=== PATIENT | male | born 1955 | race Caucasian/White ===

== ENCOUNTER 2017-07-29 14:13 | Emergency (ER) | payer BC ==
[2017-07-29] MEDS ORDERED: LORazepam TAB(*) 1 MG PO ONE (16:51)
[2017-07-29] MEDS ORDERED: HYDROmorphone INJ* 1 MG/ML CARPUJECT SYRINGE IV ONE (16:52)
[2017-07-29 17:26] LABS: Hematocrit 45 % (42-52); Hemoglobin 15.2 g/dl (14.0-18.0); Mean Corpuscular HGB Conc 34 g/dl (31-36); Mean Corpuscular Hemoglobin 33 pg (27-31); Mean Corpuscular Volume 97 fL (80-94); Mean Platelet Volume 7 um3 (7.4-10.4); Red Blood Count 4.59 10^6/ul (4.0-5.4); Red Cell Distribution Width 13 % (10.5-15); White Blood Count 9.7 10^3/ul (3.5-10.8)
[2017-07-29 17:44] LABS: Albumin 4.2 g/dL (3.2-5.2); BUN/Creatinine Ratio 14.4 (8-20); C Reactive Protein 1.85 mg/L (< 5.00); Calcium 9.3 mg/dL (8.6-10.3); EGFR African American 101.5 (>60); EGFR Non-African American 78.9 (>60); Globulin 2.3 g/dL (2-4); Potassium 4.4 mmol/L (3.5-5.0); Total Bilirubin 0.4 mg/dL (0.2-1.0); Total Protein 6.5 g/dL (6.4-8.9)
[2017-07-29 18:20] LABS: Erythrocyte Sed Rate 3 mm/Hr (0-20)
[2017-07-29 19:29] VITALS: BP 135/94
--- NOTE | 2017-07-30 12:53 | ED ---
Edvin Berry Angela, scribed for Luis Alberto Gibbs MD on 07/29/17 at 1619 . Headache - HPI Summary HPI Summary: This pt is a 61 y/o male [facility] 1 month, worsening since today. Pt reports that he has chronic degenerative disc pain and has intermittent headaches. Today pt states he feels like his head is "exploiting" and is described as pressure in the occipital region. Pt notes that he has been seeing his night shift (Dr. Gonzalez at [facility] in [place]) for ihs chronic degenerative disc disease. He has been referred to a neurologist but has not seen them yet. Pt is currently on cyclobenzaprine (1 at night), Lyrica (75 mg TID), sulfasalazine (6/day), levothyroxine, Enbrel (50 mg), Sumatriptan (for migraines ), folic acid, vitamin D. Allergies: Penicillins and Mobic. - History Of Current Complaint Chief Complaint: EDNeurologicalDeficit Stated Complaint: NEUROLOGICAL ISSUES Time Seen by Provider: 07/29/17 15:42 Hx Obtained From: Patient Onset/Duration: Started weeks ago, Still Present, Worse Since - today Currently Pain Is: Severe Timing: Intermittent, Lasting:, Days Character: Pressure Location of Headache: Occipital Associated Signs And Symptoms: Neck Pain - Allergies/Home Medications Allergies/Adverse Reactions: Allergies Allergy/AdvReac Type Severity Reaction Status Date / Time Meloxicam [From Mobic] Allergy Severe Nausea And Verified 07/29/17 14:24 Vomiting Penicillins Allergy Intermediate Hives Verified 07/29/17 14:24 Home Medications: Home Medications Candesartan (NF) [Atacand (NF)] 8 mg PO DAILY 07/29/17 [History Confirmed ] Cholecalciferol TAB* [Vitamin D TAB*] 2,000 units PO DAILY 07/29/17 [History Confirmed 07/29/17] Cyclobenzaprine TAB* [Flexeril 10 MG TAB*] 10 mg PO BEDTIME PRN 07/29/17 [ History Confirmed 07/29/17] Etanercept SYR (NF) [Enbrel (NF)] 50 mg SUBCUT Q7D 07/29/17 [History Confirmed 07/29/17] Folic Acid TAB* [Folvite TAB*] 1,600 mcg PO DAILY 07/29/17 [History Confirmed ] PMH/Surg Hx/FS Hx/Imm Hx Endocrine/Hematology History: Reports: Hx Thyroid Disease - hypothyroid Denies: Hx Diabetes, Hx Systemic Lupus Erythematosus Cardiovascular History: Reports: Hx Hypertension Denies: Hx Congestive Heart Failure, Hx Pacemaker/ICD, Other Cardiovascular Problems/Disorders Respiratory History: Reports: Other Respiratory Problems/Disorders - HX PE IN PAST Denies: Hx Asthma, Hx Chronic Obstructive Pulmonary Disease (COPD) GI History: Denies: Hx Ulcer History: Denies: Hx Dialysis, Hx Renal Disease Musculoskeletal History: Denies: Hx Rheumatoid Arthritis Sensory History: Denies: Hx Hearing Aid Psychiatric History: Denies: Hx Panic Disorder - Cancer History Cancer Type, Location and Year: DENIES Hx Chemotherapy: No - Surgical History Surgery Procedure, Year, and Place: CARPAL TUNNEL RELEASE, HYDROCELE HERNIA CHILD, KNEE ARTHRO,LYPOMA REMOVALS Infectious Disease History: No Infectious Disease History: Denies: Hx Clostridium Difficile, Hx Hepatitis, Hx Human Immunodeficiency Virus (HIV), Hx of Known/Suspected MRSA, Hx Shingles, Hx Tuberculosis, Hx Known/ Suspected VRE, Hx Known/Suspected VRSA, History Other Infectious Disease, Traveled Outside the [place] in Last 30 Days - Family History Known Family History: Positive: Other - Father: Parkinson's disease. Mother: breast CA. - Social History Alcohol Use: Occasionally Substance Use Type: Reports: None Smoking Status (MU): Never Smoked Tobacco Review of Systems Negative: Fever, Chills Respiratory: Negative Gastrointestinal: Negative Genitourinary: Negative Musculoskeletal: Other - neck pain Positive: Headache All Other Systems Reviewed And Are Negative: Yes Physical Exam - Summary Physical Exam Summary: Appearance: The patient is well-nourished in no acute distress. Skin: The skin is warm and dry and skin color reflects adequate perfusion. HEENT: The head is normocephalic and atraumatic. The pupils are equal and reactive. The conjunctivae are clear and without drainage. Nares are patent and without drainage. Mouth reveals moist mucous membranes and the throat is without erythema and exudate. The external ears are intact. The ear canals are patent and without drainage. The tympanic membranes are intact. The temples are non-tender. Neck: the neck is supple with full range of motion. Pt is very tender to palpation in the upper neck. There are no carotid bruits. There is no neck vein distension. Respiratory: Chest is non-tender. Lungs are clear to auscultation and breath sounds are symmetrical and equal. Cardiovascular: Heart is regular rate and rhythm. There is no murmur or rub auscultated. There is no peripheral edema and pulses are symmetrical and equal. Abdomen: The abdomen is soft and non-tender. There are normal bowel sounds heard in all four quadrants and there is no organomegaly palpated. Musculoskeletal: There is no back tenderness noted. Extremities are non-tender with full range of motion. There is good capillary refill. There is no peripheral edema or calf tenderness elicited. Neurological: Patient is alert and oriented to person, place and time. The patient has symmetrical motor strength in all four extremities. Cranial nerves are grossly intact. Deep tendon reflexes are symmetrical and equal in all four extremities. Psychiatric: The patient has an appropriate affect and does not exhibit any anxiety or depression. Triage Information Reviewed: Yes Vital Signs On Initial Exam: Initial Vitals Temp Pulse Resp BP Pulse Ox 96.8 F 78 20 154/99 100 07/29/17 14:17 07/29/17 14:17 07/29/17 14:17 07/29/17 14:17 07/29/17 14:17 Vital Signs Reviewed: Yes Diagnostics - Vital Signs Vital Signs Temp Pulse Resp BP Pulse Ox 07/29/17 14:17 96.8 F 78 20 154/99 100 - Laboratory Lab Results: Lab Results 07/29/17 07/29/17 Range/Units 17:05 17:05 WBC 9.7 (3.5-10.8) 10^3/ul RBC 4.59 (4.0-5.4) 10^6/ul Hgb 15.2 (14.0-18.0) g/dl Hct 45 (42-52) % MCV 97 H (80-94) fL MCH 33 H (27-31) pg MCHC 34 (31-36) g/dl RDW 13 (10.5-15) % Plt Count 229 (150-450) 10^3/ul MPV 7 L (7.4-10.4) um3 Neut % (Auto) 77.7 (38-83) % Lymph % (Auto) 14.4 L (25-47) % [place] % (Auto) 6.7 (1-9) % Eos % (Auto) 0.7 (0-6) % Baso % (Auto) 0.5 (0-2) % Absolute Neuts (auto) 7.5 (1.5-7.7) 10^3/ul Absolute Lymphs (auto) 1.4 (1.0-4.8) 10^3/ul Absolute Monos (auto) 0.7 (0-0.8) 10^3/ul Absolute Eos (auto) 0.1 (0-0.6) 10^3/ul Absolute Basos (auto) 0.1 (0-0.2) 10^3/ul Absolute Nucleated RBC 0 10^3/ul Nucleated RBC % 0 ESR 3 (0-20) mm/Hr Sodium 142 (133-145) mmol/L Potassium 4.4 (3.5-5.0) mmol/L Chloride 109 (101-111) mmol/L Carbon Dioxide 28 (22-32) mmol/L Anion Gap 5 (2-11) mmol/L BUN 14 (6-24) mg/dL Creatinine 0.97 (0.67-1.17) mg/dL Est GFR ( Amer) 101.5 (>60) Est GFR (Non-Af Amer) 78.9 (>60) BUN/Creatinine Ratio 14.4 (8-20) Glucose 119 H (70-100) mg/dL Calcium 9.3 (8.6-10.3) mg/dL Total Bilirubin 0.40 (0.2-1.0) mg/dL AST 17 (13-39) U/L ALT 17 (7-52) U/L Alkaline Phosphatase 47 (34-104) U/L C-Reactive Protein 1.85 (< 5.00) mg/L Total Protein 6.5 (6.4-8.9) g/dL Albumin 4.2 (3.2-5.2) g/dL Globulin 2.3 (2-4) g/dL Albumin/Globulin Ratio 1.8 (1-3) Result Diagrams: 07/29/17 17:05 07/29/17 17:05 Lab Statement: Any lab studies that have been ordered have been reviewed, and results considered in the medical decision making process. Re-Evaluation - Re-Evaluation First Eval Re-Evaluation Time: :51 Comment: I reviewed the lab results with the pt. Headache Course/Dx - Course Course Of Treatment: Mr. Whitten presented with an exacerbation of his chronic occipital CELESTIN that radiates up the back of his head and into his temples. His W/ U was negative and he go a fair amount of relief with narcotic pain medication and ativan as muscle relaxer. I will give him a few days of the ativan to try to loosen his neck up. - Diagnoses Provider Diagnoses: Cervical radiculopathy Discharge - Discharge Plan Condition: Stable Disposition: HOME Prescriptions: LORazepam TAB(*) [Ativan TAB(*)] 1 mg PO Q6H PRN #20 tab MDD 4 PRN Reason: Pain Patient Education Materials: Cervical Radiculopathy (ED) Referrals: Zackery Galicia DO [Primary Care Provider] - Additional Instructions: Please follow up with your primary care provider. RETURN TO THE ED FOR ANY WORSENING SYMPTOMS. The documentation as recorded by the Edvin boggs Angela accurately reflects the service I personally performed and the decisions made by me, Luis Alberto Gibbs MD.
== END 2017-07-29 19:29 | disposition home or self-care (01) ==
LOC: ED 14:13
DX: M54.12 Radiculopathy, cervical region (principal); E03.9 Hypothyroidism, unspecified; I10 Essential (primary) hypertension; Z86.711 Personal history of pulmonary embolism; Z88.0 Allergy status to penicillin
CPT/HCPCS: 36415; 80053; 85025; 85652; 86140; 96374; 99283; A9270-GY; J1170

== ENCOUNTER 2017-08-02 14:13 | Emergency (ER) | payer BC ==
--- OUTSIDE RECORDS SUMMARY | 2017-08-02 14:20 | XMS REPORT | Continuity of Care Document ---
:1955 Author Organization [facility] Address [address], [place] [id number] Phone Care Team Providers Name Role Phone Sopchak DO, Zackery Unavailable Unavailable Sopchak DO, Zackery Unavailable Unavailable Allergies, Adverse Reactions, Alerts Substance Reaction Severity Status meloxicam Unknown Active Penicillins Unknown Active Medications Medication Instructions Dosage Effective Status Comments Dates (start - stop) Lyrica 75 mg capsule take 1 capsule by 75 MG - Active Reference #: oral route 3 [id number] times every day ENBREL SURECLICK 1ML INJECT 50 MG (1 Not Available - Active 4'S 50MG PEN) UNDER THE SKIN ONCE A WEEK SULFASALAZINE 500 MG TAKE THREE 1500 MG - Active TABLET TABLETS BY MOUTH TWICE A DAY AFTER MEALS cyclobenzaprine 5 mg take 1-2 tablet - Active tablet by oral route every bedtime Voltaren 1 % topical apply (2G) by 2 G - Active gel topical route 4 times every day to the affected area(s) as needed levothyroxine 100 take 1 tablet by 100 MCG - Active mcg tablet oral route every day warfarin 4 mg tablet take 1 tablet by 4 MG - Active oral route every day Imitrex 100 mg take 1 tablet by - Active tablet oral route once with fluids as early as possible after the onset of a migraine attack;may repeat after 2 hours if headache returns, not to exceed 200mgin 24hrs Dovonex 0.005 % apply by topical Not Available - Active topical cream route 2 times every day a thin layer to the affected area(s) ; rub in gently and completely as needed Vitamin D3 2,000 take 1 by Oral Not Available - Active unit capsule route once folic acid 800 mcg take 1 tablet by 0.8 MG - Active tablet oral route every day candesartan 8 mg take 1 tablet by 8 MG - Active tablet oral route every day tamsulosin ER 0.4 mg take 1 capsule by 0.4 MG - Active capsule,extended oral route every release 24 hr day 1/2 hour following the same meal each day famotidine 10 mg take 1 tablet by 10 MG - Active tablet oral route every day as needed Excedrin Migraine as needed - Active 250 mg-250 mg-65 mg tablet Problems Condition Effective Dates (start - stop) Clinical Status Other psoriatic arthropathy Fibromyalgia Other psoriatic arthropathy Fibromyalgia Other bed bug exterminator (current) drug therapy Cervicalgia Other psoriatic arthropathy Fibromyalgia Cervicalgia Occipital neuralgia Other group home (current) drug therapy Other cervical disc disorders, unspecified cervical region Other cervical disc disorders, unspecified cervical region Other psoriatic arthropathy Fibromyalgia Other bed bug exterminator (current) drug therapy Other cervical disc disorders, unspecified cervical region Other psoriatic arthropathy Fibromyalgia Other group home (current) drug therapy Other intervertebral disc disorders, lumbar region Pain in right hip Other psoriatic arthropathy Fibromyalgia Other intervertebral disc disorders, lumbar region Other psoriatic arthropathy Fibromyalgia Other intervertebral disc disorders, lumbar region Other bed bug exterminator (current) drug therapy Other psoriatic arthropathy Other bed bug exterminator (current) drug therapy Fibromyalgia Other cervical disc disorders, unspecified cervical region Other intervertebral disc disorders, lumbar region Psoriasis - Active Pneumonia - Active Migraine - Active Kidney stone - Active Hypertension - Active Hypothyroidism - Active Asthma - Active Procedures Procedure Date Unknown Results Test Name Date and Time Measure Units Reference Range Abnormal Flag Comments Unknown Advance Directives Directive Yes / No Effective Date File Name Unknown Encounters Encounter Practice Location Reason(s) Diagnoses Date Provider Care Team Description For Visit Members [facility] 0-201 dylan Vie[facility]. [facility] [address] [facility], [address] [facility], [place], [place], [id number], [id number], [place]. [place] tel:[phone] tel:[phone] [facility] Other cervical Nov- [facility] Specialist: Health Health disc dylan Vieira. Bebe Umanzor disorders, 7 [address] [facility] [address] [facility] unspecified [address] cervical [place], [facility], regionOther [place], [address] [place], cervical disc [place], [place], [place], disorders, [id number], [place], [id number], [place], [address]. [place] cervical tel: tel: tel:[phone] region [phone] [id number] ring Provider: Zackery Purvis, [address] [place], [address]. tel:[phone] [facility] Nov-2 [facility] 0- dylan Vieira. [facility] 7 5[address] [facility], 5[address] [facility]C [facility], [place], [place], [id number], [id number], [place]. [place] tel: tel: [phone] [facility] Other Jun- [facility] Specialist: Health Health psoriatic 0 dylan Vieira. Bebe Umanzor arthropathyFib 7 [address] [facility], [facility] [facility] romyalgiaCervi [address] calgiaOccipita [place], [facility], l [place], [address] [place], neuralgiaOther [place], [address], [place], bed bug exterminator [id number], [place], [id number], [place], [address]. [place] therapy tel:[phone] tel:[phone] tel:[phone] [phone] ring Provider: Zackery Purvis, 5 [place], [address]. tel:[phone] [facility] Other Mar- [facility] Referring Health Health psoriatic dylan Vieira. Provider: Erna Umanzor arthropathyFib 7 5794 [facility], [facility] romyalgiaOther [facility] group home [place], [place], [address] [place], (current) drug [place], [place], therapy [place], [address], [place], [place], [id number], [place], [address]. [id number], [place]. tel:[phone] [place] tel:[phone] tel:[phone] [facility] Other December- [facility] Referring Health Health psoriatic dylan Vieira. Provider: Erna Umanzor arthropathyFib 7 5794 [facility], 5[address] [facility] romyalgiaOther [facility] bed bug exterminator [place], [place], [address] [place], (current) drug [place], [place], therapyOther [place], [address], [place], [place], intervertebral [id number], [place], [address]. [id number], disc [place]. tel:+[phone] [place] disorders, tel:[phone] tel:[phone] regionPain in right hip Arthritis Arthritis Other Sep- Shreya CAVING GUIDE-C Referring Health Health psoriatic Gale. 5794 Provider: Erna Umanzor arthropathyOth 7 [facility], 5794 PLLC er bed bug exterminator [place], [facility] (current) drug [place], [place], 5 [place], therapyFibromy [place], [place], algiaOther [id number], St, [place], [place], [place], [address]. [id number], disorders, tel:[phone] tel:[phone] [place] unspecified [phone] tel:[phone] cervical [phone] regionOther intervertebral disc disorders, lumbar region [facility] Other cervical [facility] Health Health disc dylan Vieira. Erna Umanzor disorders, 6 5794 PLLC, 5794 PLLC unspecified [facility] cervical [place], [place], region [place], [place], [place], [id number], [id number], [place]. [place] tel:[phone] tel:[phone] [facility] Other [facility] Referring Health Health psoriatic 1- dylan [place]i. Provider: Erna Umanzor arthropathyFib 6 5794 [facility], 5[address] [facility] romyalgiaOther [facility] bed bug exterminator [place], [place], 5 [place], (current) drug [place], [place], therapyCervica [place], St, [place], [place], lgia [id number], [place], [address]. [id number], [place]. tel:[phone] [place] tel:[phone] tel:[phone] [facility] Arthritis Other [place] Referring Health Health psoriatic 0- WIL Paz. Provider: Erna Umanzor arthropathyFib 6 5794 [facility], 5[address] PLLC romyalgiaOther [facility] DO [facility] intervertebral [place], [place], [address] [place], disc [place], [place], disorders, [place], St, [place], [place], lumbar [id number], [place], [address]. [id number], regionOther [place]. tel:+[phone] [place] group home tel:[phone] tel:[phone] (current) drug [phone] therapy [facility] Other [facility] Referring [facility] Health psoriatic 3- MD Lai. Provider: Erna Umanzor arthropathyFib 6 5794 [facility], 5[address] [facility] romyalgiaOther [facility] intervertebral [place], [place], 5 [place], disc [place], [place], disorders, [place], St, [place], [place], lumbar region [id number], [place], [address]. [id number], [place]. tel:[phone] [place] tel:[phone] tel:[phone] [facility]ritis Arthritis Other [facility] Referring [facility] Health psoriatic 6- MD Lai. Provider: Erna Umanzor arthropathyFib 6 5794 [facility], 5[address] [facility] romyalgia [facility] Sopchak DO [facility] [place], [place], [address] [place], [place], [place], [place], [id number], [place], [address]. [id number], . tel:[phone] tel:[phone] tel:[phone] Family History Family Member Diagnosis Age At Onset Status Father Rheumatoid Arthritis Yes Mother Psoriasis Yes Father Lower Back Pain Yes Mother Osteoarthritis Yes Daughter Psoriasis Yes Father Osteoarthritis Yes Father Ankylosing Spondylitis Yes Mother Lower Back Pain Yes Immunizations Vaccine Date Status Comments Influenza, injectable, completed - Note: Approx - Completed quadrivalent, split virus, 18 reason: Other Provider years or older Afluria Quad [id number] Influenza, injectable, trivalent, completed - Note: approx - Completed split virus, 4 years and older, reason: Other Provider Fluvirin [id number] Influenza, split virus, completed - Completed reason: Other injectable, 3 years and older Provider Fluvirin [id number] Pneumococcal polysaccharide PPV23 completed - Completed reason: Other Provider Payers Payer name Insurance type Covered libertarian ID Authorization(s) BCBS No Referral Required [id number] Social History Type Description Quantity Date Captured Alcohol Use Details No Caffeine Use Details No Tobacco Use Status No Smoking Status No Vital Signs Date / Height Weight BMI Pulse Blood Temperature Respiratory Body Head BMI Time: Rate Pressure Rate Surface Circumference percentile Area Unknown Chief Complaint And Reason For Visit Unknown Chief Complaint And Reason For Visit Reason For Referral Reason For Referral Unknown Plan Of Care Date Type Action Status Referral Ordered: ordered CERVICAL SPINE X-RAY, COMPLETE AND FLEXION EXTENSION Referral Ordered: ordered Bebe Cutler (related to Other cervical disc disorders, unspecified cervical region) Referral Referred To: ordered Bebe Cutler [address] [place], [phone] Ordered: Referrals: Bebe Cutler. Evaluate and treat Referral Ordered: ordered HIP, XRAY UNILATERAL PELVIS, 1 VIEW Right Appointment Jimbo Cuadra BOOKED Date Type Problem Goal Intervention Status Start Date Unknown. History Of Present Illness Encounter Date Complaint History Of Present Illness This patient has no known history of present illness Functional Status Encounter Date Functional Assessment Cognitive Assessment Unknown Medications Administered Medication Instructions Dosage Effective Dates (start - stop) Status Comments Drug Treatment Unknown Instructions Date Instruction Additional Information Discussed importance of holding DMARDs/ biologics if patient develops an infection and to notify the treating physician Avoid live vaccines Discussed importance of holding DMARDs/ biologics if patient develops an infection and to notify the treating physician Labs ordered to check disease activity. Labs ordered to check blood counts, liver and kidney functions to monitor safety of medication. Daily range of motion exercises for symptomatic joints recommended. continue same medication plan call if symptoms worsen Avoid live vaccines Discussed importance of holding DMARDs/ biologics if patient develops an infection and to notify the treating physician Labs ordered to check disease activity. Labs ordered to check blood counts, liver and kidney functions to monitor safety of medication. continue same medication plan Avoid live vaccines Discussed importance of holding DMARDs/ biologics if patient develops an infection and to notify the treating physician Labs ordered to check disease activity. Labs ordered to check blood counts, liver and kidney functions to monitor safety of medication. continue same medication plan call if symptoms worsen Avoid live vaccines Discussed importance of holding DMARDs/ biologics if patient develops an infection and to notify the treating physician Labs ordered to check disease activity. Labs ordered to check blood counts, liver and kidney functions to monitor safety of medication. continue same medication plan call if symptoms worsen Reviewed importance of compliance/adherence to medications prescribed Avoid live vaccines Exercise more Discussed importance of holding DMARDs/ biologics if patient develops an infection and to notify the treating physician Stretching
--- OUTSIDE RECORDS SUMMARY | 2017-08-02 14:20 | XMS REPORT ---
:1955 External Reference #:[id number] Author Organization [facility] Address [address] [place] [address] Phone [phone] Care Team Providers Name Role Phone HCP given Primary Care Physician Unavailable Payers Type Date Identification Numbers Payment Provider Subscriber Commercial Effective: Policy Number: Inez Cuadra 2011 [id number] Ind/Ppo/Hmo/Pos Group Name: [employer] [address] [id number] PayID: [id number] [place] [address] Problems Date Description Provider Status Onset: 11/22/2014 Arthralgia of the upper arm Zackery Galicia D.O. Active Onset: 11/22/2014 Psoriasis with arthropathy Zackery Galicia D.O. Active Onset: 11/22/2014 Benign essential hypertension Zackery Galicia D.O. Active Onset: 12/22/2014 Onychomycosis Zackery Galicia D.O. Active Onset: 06/23/2015 Essential hypertension Zackery Galicia D.O. Active Onset: 08/16/2015 Benign prostatic hypertrophy with Zackery Galicia D.O. Active outflow obstruction Onset: 09/16/2015 Epistaxis Zackery Galicia D.O. Active Onset: 11/22/2015 Snsrnrl hear loss, uni, right ear, w Zackery Galicia D.O. Active unrestr hear cntra side Onset: 11/22/2015 Snsrnrl hear loss, uni, left ear, w Zackery Galicia D.O. Active unrestr hear cntra side Onset: 11/22/2015 Tinnitus, bilateral Zackery Galicia D.O. Active Family History Date Family Member(s) Problem(s) Comments Father Emphysema Father Heart Problems Mother Breast Cancer Paternal Grandfather Tuberculosis Paternal Grandmother Heart Problems Paternal Aunts Breast Cancer Social History Type Date Description Comments Education College ([employer]) Marital Status Work Status 2003 Disabled ETOH Use Occasionally consumes alcohol Recreational Drug Use Has Used Illegal Drugs In The Past Smoking Patient has never smoked Daily Caffeine Consumes on average 2 cups of coffee per day Daily Caffeine Consumes on average 2 sodas per day Exercise Type/Frequency Exercises sporadically Sun Exposure Uses sunscreen Seat Belt/Car Seat Seat Belt Use - Yes Currently Active Patient is currently sexually active STD's No STD History Additional Info Sexual preference is women Allergies, Adverse Reactions, Alerts Date Description Reaction Status Severity Comments 10/20/2013 Penicillins active hives 10/20/2013 Mobic active extreme nausea, hives Medications Medication Date Status Form Strength Qnty SIG Indications Ordering Provider Ondansetron 07/30 Active Tablets 4mg 14tab 1 by mouth G43.119 Sopchak, HCL s three times a Zackery, day as needed D.O. for nausea Lorazepam 07/29 Active Tablets 1mg 1 tab po every 6 hrs prn Luis Alberto Jessica MD Folic Acid 06/21 Active Tablets 800mcg 2 by mouth every day Famotidine 05/22 Active Tablets 40mg 180ta Take One Tablet K21.9 bs By Mouth Twice Zackery, A Day For D.O. Gastroesophagea l Reflux Coumadin 12/27 Active Tablets 1mg 200ta 0 - 5 tablets Z00.00 cha bs daily as nithin Vizcarra. D.O. Nosebleed 09/16 Active Kit 1unit use as directed R04.0 Soprustyk, Plugs/Antisept s leave in place gt Vizcarra Towelettes for at least 30 D.O. min before rechecking bleeding Tamsulosin HCL 08/16 Active Capsules 0.4mg 90cap Take One N40.1 s Capsule By Zackery, Mouth Every Day D.O. Aluminum 03/23 Active Powder 100gm use for Z00.00 Sopchak, Chloride bleeding Zackery, Anhydrous topically as D.O. directed. Warfarin 03/23 Active Tablets 4mg 90tab take one tablet Z00.00 Sopchak, Sodium s by mouth every Zackery, day D.O. Atacand 12/22 Active Tablets 8mg 90tab Take One Tablet I10 Sopchak, s By Mouth Every Zackery, Day D.O. Levothyroxine 11/02 Active Tablets 100mcg 30tab Take One Tablet E03.9 Sopchak, Sodium s By Mouth Every Zackery, Day D.O. Voltaren 09/21 Active Gel 1% 2 gm apply to affected area every day # 100gm Warfarin 10/30 Active Tablets 5mg 100ta take 08/13- Z. Dwain bs tablets by A. mouth as nithin Moreno M.D. Lyrica 10/29 Active Capsules 75mg 90cap 1 by mouth [facility] s three times a Zackery, day D.O. Sulfazine 10/29 Active Tablets 500mg 3 bid Vitamin D-3 10/29 Active Tablets 2000Unit 30tab 1 po qd s Enbrel 10/29 Active Solution 50mg/ml injection weekly Dovonex 10/29 Active Cream 0.005% 120un Apply A Thin L40.50 co its Film To The Cel[place], Affected Skin M.D. Two Times A Day And Rub In Gently And Completely as Needed Imitrex 10/28 Active Tablets 100mg 14tab Take 1 Tablet G43.109 s By Mouth as Zackery, Needed At Onset D.O. Of Migraine Headache,May Take Another Later If Headache Does Not Subside Baclofen 04/08 Hx Tablets 10mg 30tab take 1 tablet M54.5 Soprustyk s by mouth at Zackery, - night for D.O. 07/29 muscle spasms back pain Sulfamethoxazo 04/08 Hx Tablets 800-160mg 20tab 1 by mouth L02.426 Soledadk, le/Trimethopri s twice a day hemalatha Vizcarra - D.O. 04/18 Keflex 08/15 Hx Capsules 500mg 30cap 1 tab by mouth L03.011 Hektor, s three times a TAN Wilson - day x10 days 08/25 Ciprofloxacin 08/13 Hx Tablets 500mg one tab po bid Unknown until finished - 09/16 Prednisone 08/08 Hx Tablets 10mg 5tabs 1 po daily for R05 Sopchak, 5 days Zackery, - D.O. 08/16 Cefuroxime 07/18 Hx Tablets 500mg 20tab 1 by mouth R05 Silcoff, Axetil /2014 s twice a day for Celestine, - respiratory M.D. 07/28 infection and /2014 possible pneumonia Flovent HFA 07/17 Hx Aerosol 220mcg/Ac t - 08/16 Hydrocodone 07/17 Hx Liquid ER 10-8mg/5M Unknown Polistirex/Chl L orpheniramine - Polistirex 08/16 Ventolin HFA 07/17 Hx Aerosol 108(90Bas e) - mcg/Act 09/16 Sulfamethoxazo 03/25 Hx Tablets 800-160mg 6tabs 1 [facility]/Trimethopri twice a day for hemalatha Vizcarra DS - 3 days D.O. 03/28 Drysol 03/23 Hx Solution 20% 35ml use for V58.61 bleeding Zackery, - topically as D.O. 03/23 directed. Xerac ac 03/23 Hx Solution 6.25% 35ml use as directed. Zackery - D.O. 08/16 Voltaren 03/22 Hx Gel 1% apply to Unknown affected area q - 6 hours prn 11/21 Penlac 12/22 Hx Solution 8% 6.6ml apply to 110.1 adjacent skin Zackery, - & affected D.O. 07/29 nails every day, remove w/alcohol every 7 days use until nail is completely normal Lisinopril 11/22 Hx Tablets 10mg 90tab take 1 tablet 401.1 s by mouth daily Zackery, - at night for D.O. 12/22 high blood /2015 pressure Medrol 11/22 Hx Tablets 4mg 15tab 5 tabs then 4 719.42 Soprustyk, /2014 s tabs then 3 Zackery, - tabs then 2 D.O. 11/27 tabs then 1 tab Hydrocodone/Ac 10/30 Hx Tablets 5-325mg 5tabs 1 by mouth Unknown etamin every 4 hours - as needed for 07/29 pain Nexium 10/29 Hx Packet 40mg 90uni 1 po qd ts - 08/16 Esomeprazole 10/29 Hx Capsules 40mg one po daily Unknown DR - 05/21 Folic Acid 10/22 Hx Tablets 800mcg qd Unknown - 06/21 Levothyroxine 10/04 Hx 100mcg 1 qd Unknown - 11/02 Medications Administered in Office Medication Date Status Form Strength Qnty SIG Indications Ordering Provider injection, Administered Injection gualberto Galicia, 10 mg 015 Debra Vizcarra Immunizations CPT Code Status Date Vaccine Lot # [id number] Given 04/08/2017 Influenza Virus Vaccine, Quadrivalent, Split, [id number] Preservative Free [id number] Given 04/08/2017 Prevnar 13 [id number] Given 05/22/2016 Influenza Virus Vaccine, Quadrivalent, Split, [id number] Preservative Free 72558 Given 06/13/2015 Influenza Virus Vaccine, Quadrivalent, Split, Preservative Free 53248 Given 12/22/2014 Adacel or Boostrix, TDaP [id number] 27673 Given Unknown Pneumococcal Immunization Vital Signs Date Vital Result Comment 07/30/2017 BP Systolic 130 mmHg BP Diastolic 88 mmHg Height 74 inches 6'2" with sneakers Weight 257.00 lb with sneakers BMI (Body Mass Index) 33.0 kg/m2 04/08/2017 BP Systolic 122 mmHg BP Diastolic 85 mmHg Weight 251.00 lb with sneakers 11/22/2016 BP Systolic 130 mmHg BP Diastolic 88 mmHg Height 74 inches 6'2" with sneakers Weight 252.00 lb with sneakers BMI (Body Mass Index) 32.4 kg/m2 09/04/2016 BP Systolic 134 mmHg BP Diastolic 84 mmHg 08/15/2016 BP Systolic 142 mmHg BP Diastolic 84 mmHg Weight 257.00 lb 07/23/2016 BP Systolic 122 mmHg BP Diastolic 80 mmHg Weight 257.00 lb with sneakers 05/22/2016 BP Systolic 130 mmHg BP Diastolic 88 mmHg Height 74 inches 6'2" Weight 260.00 lb BMI (Body Mass Index) 33.4 kg/m2 11/22/2015 BP Systolic 126 mmHg BP Diastolic 82 mmHg Height 74.5 inches 6'2.50" Weight 262.00 lb BMI (Body Mass Index) 33.2 kg/m2 09/16/2015 BP Systolic 121 mmHg BP Diastolic 78 mmHg Heart Rate 67 /min Weight 264.00 lb with sneakers 08/16/2015 BP Systolic 123 mmHg BP Diastolic 83 mmHg Heart Rate 69 /min Body Temperature 98.5 F Weight 262.00 lb with sneakers 08/08/2015 BP Systolic 129 mmHg BP Diastolic 84 mmHg Heart Rate 63 /min 07/18/2015 BP Systolic 140 mmHg BP Diastolic 80 mmHg Heart Rate 64 /min reg Respiratory Rate 12 /min not laboured Body Temperature 98.0 F Weight 265.00 lb 06/23/2015 BP Systolic 121 mmHg BP Diastolic 75 mmHg Heart Rate 60 /min Weight 264.00 lb with sneakers 04/01/2015 BP Systolic 128 mmHg BP Diastolic 80 mmHg Body Temperature 98.1 F 03/25/2015 BP Systolic 120 mmHg BP Diastolic 88 mmHg Weight 259.00 lb with slippers 03/23/2015 BP Systolic 124 mmHg BP Diastolic 79 mmHg Heart Rate 62 /min Weight 259.00 lb shoes on 12/22/2014 BP Systolic 130 mmHg BP Diastolic 82 mmHg Weight 247.00 lb 11/22/2014 BP Systolic 150 mmHg BP Diastolic 90 mmHg Weight 258.00 lb w/shoes 11/05/2014 BP Systolic 152 mmHg Done at rheumatology BP Diastolic 103 mmHg Done at rheumatology BP Systolic Recheck 164 mmHg [facility] - Rechecked BP Diastolic Recheck 104 mmHg [facility] - Rechecked 10/11/2014 BP Systolic 140 mmHg BP Diastolic 96 mmHg Height 74 inches 6'2" shoes on Weight 259.00 lb shoes on BMI (Body Mass Index) 33.2 kg/m2 10/20/2013 BP Systolic 138 mmHg BP Diastolic 88 mmHg Height 73 inches 6'1" Weight 252.00 lb BMI (Body Mass Index) 33.2 kg/m2 Results Test Date Test Result H/L Range Note Laboratory test finding 07/29/2017 Erythrocyte Sed Rate 3 mm/Hr 0-20 Comp Metabolic Panel 07/29/2017 Sodium 142 mmol/L 133-145 Potassium 4.4 mmol/L 3.5-5.0 Chloride 109 mmol/L 101-111 Co2 Carbon Dioxide 28 mmol/L 22-32 Anion Gap 5 mmol/L 2-11 Glucose 119 mg/dL High 70-100 Blood Urea Nitrogen 14 mg/dL 6-24 Creatinine 0.97 mg/dL 0.67-1.17 BUN/Creatinine Ratio 14.4 8-20 Calcium 9.3 mg/dL 8.6-10.3 Total Protein 6.5 g/dL 6.4-8.9 Albumin 4.2 g/dL 3.2-5.2 Globulin 2.3 g/dL 2-4 Albumin/Globulin Ratio 1.8 1-3 Total Bilirubin 0.40 mg/dL 0.2-1.0 Alkaline Phosphatase 47 U/L 34-104 Alt 17 U/L 7-52 Ast 17 U/L 13-39 Egfr Non- 78.9 >60 Egfr 101.5 >60 1 CBC Auto Diff 07/29/2017 White Blood Count 9.7 10^3/uL 3.5-10.8 Red Blood Count 4.59 10^6/uL 4.0-5.4 Hemoglobin 15.2 g/dL 14.0-18.0 Hematocrit 45 % 42-52 Mean Corpuscular Volume 97 fL High 80-94 Mean Corpuscular Hemoglobin 33 pg High 27-31 Mean Corpuscular HGB Conc 34 g/dL 31-36 Red Cell Distribution Width 13 % 10.5-15 Platelet Count 229 10^3/uL 150-450 Mean Platelet Volume 7 um3 Low 7.4-10.4 Abs Neutrophils 7.5 10^3/uL 1.5-7.7 Abs Lymphocytes 1.4 10^3/uL 1.0-4.8 Abs Monocytes 0.7 10^3/uL 0-0.8 Abs Eosinophils 0.1 10^3/uL 0-0.6 Abs Basophils 0.1 10^3/uL 0-0.2 Abs Nucleated RBC 0 10^3/uL Granulocyte % 77.7 % 38-83 Lymphocyte % 14.4 % Low 25-47 Monocyte % 6.7 % 1-9 Eosinophil % 0.7 % 0-6 Basophil % 0.5 % 0-2 Nucleated Red Blood Cells % 0 Laboratory test 07/29/2017 C Reactive Protein 1.85 mg/L < 5.00 2 finding Inr/Protime 07/24/2017 Inr 3.20 High 0.77-1.02 3 Inr/Protime 06/18/2017 Inr 2.49 High 0.89-1.11 Inr/Protime 05/14/2017 Inr 2.44 High 0.89-1.11 Inr/Protime 04/04/2017 Inr 2.04 High 0.89-1.11 Laboratory test 02/25/2017 Inr/Protime 2.22 High 0.89-1.11 finding Inr/Protime 02/18/2017 Inr 2.68 High 0.89-1.11 Inr/Protime 02/08/2017 Inr 1.29 High 0.89-1.11 Laboratory test 02/05/2017 Clotest SEE RESULT 4, 5 finding BELOW Laboratory test 02/05/2017 Surgical Pathology SEE RESULT 6, 7 finding BELOW Inr/Protime 02/04/2017 Inr 1.03 0.89-1.11 Laboratory test 12/27/2016 Inr/Protime 2.33 High 0.89-1.11 finding Inr/Protime 12/04/2016 Inr 2.22 High 0.89-1.11 Inr/Protime 11/26/2016 Inr 1.82 High 0.89-1.11 Lipid Profile 11/26/2016 Triglycerides 90 mg/dL 8 (Trig/Chol/HDL) Cholesterol 154 mg/dL 9 HDL Cholesterol 43.0 mg/dL 10 LDL Cholesterol 93 mg/dL 11 Laboratory test 11/26/2016 TSH (Thyroid Stim 1.90 mcIU/mL 0.34-5.60 finding Horm) Laboratory test 10/22/2016 Inr/Protime 2.18 High 0.89-1.11 finding Laboratory test 10/12/2016 PSA Screening 2.849 ng/mL 0-4.0 12 finding Inr/Protime 10/12/2016 Inr 2.39 High 0.89-1.11 Inr/Protime 10/01/2016 Inr 1.87 High 0.89-1.11 Inr/Protime 09/24/2016 Inr 2.21 High 0.89-1.11 Inr/Protime 09/13/2016 Inr 1.73 High 0.89-1.11 Laboratory test 08/15/2016 Wound SEE RESULT 13, 14 finding Culture/Sensi BELOW Inr/Protime 08/10/2016 Inr 2.15 High 0.89-1.11 Inr/Protime 07/04/2016 Inr 2.36 High 0.89-1.11 Inr/Protime 05/22/2016 Inr 2.10 High 0.89-1.11 Inr/Protime 04/24/2016 Inr 2.22 High 0.89-1.11 Inr/Protime 03/14/2016 Inr 2.29 High 0.89-1.11 Inr/Protime 03/07/2016 Inr 2.71 High 0.89-1.11 Protime W/ Inr(Add 02/27/2016 #Prothrombin Time <pending> V58.61) #International Normalized <pending> Inr/Protime 02/27/2016 Inr 1.95 High 0.89-1.11 Laboratory test finding 01/31/2016 Inr/Protime 2.42 High 0.89-1.11 Inr/Protime 01/26/2016 Inr 2.49 High 0.89-1.11 Inr/Protime 12/28/2015 Inr 3.33 High 0.89-1.11 Laboratory test finding 11/22/2015 Inr/Protime 2.77 High 0.89-1.11 Inr/Protime 11/10/2015 Inr 1.91 High 0.89-1.11 Inr/Protime 09/16/2015 Inr 2.06 High 0.89-1.11 Laboratory test finding 09/16/2015 Alt (SGPT) 21 U/L 7-52 Ast (Sgot) 19 U/L 13-39 C Reactive Protein 3.56 mg/L < 5.00 15 CBC Auto Diff 09/16/2015 White Blood Count 5.3 10^3/uL 3.5-10.8 Red Blood Count 4.57 10^6/uL 4.0-5.4 Hemoglobin 15.0 g/dL 14.0-18.0 Hematocrit 45 % 42-52 Mean Corpuscular Volume 98 fL High 80-94 Mean Corpuscular Hemoglobin 33 pg High 27-31 Mean Corpuscular HGB Conc 33 g/dL 31-36 Red Cell Distribution Width 13 % 10.5-15 Platelet Count 219 10^3/uL 150-450 Mean Platelet Volume 8 um3 7.4-10.4 Abs Neutrophils 2.4 10^3/uL 1.5-7.7 Abs Lymphocytes 1.8 10^3/uL 1.0-4.8 Abs Monocytes 0.7 10^3/uL 0-0.8 Abs Eosinophils 0.3 10^3/uL 0-0.6 Abs Basophils 0.1 10^3/uL 0-0.2 Abs Nucleated RBC 0.01 10^3/uL Granulocyte % 46.0 % 38-83 Lymphocyte % 33.6 % 25-47 Monocyte % 13.5 % High 1-9 Eosinophil % 5.7 % 0-6 Basophil % 1.2 % 0-2 Nucleated Red Blood Cells % 0.1 Laboratory test finding 09/16/2015 Blood Urea Nitrogen BUN 14 mg/dL 6-24 Creatinine 09/16/2015 Creatinine 0.90 mg/dL 0.67-1.17 Egfr Non- 86.7 >60 Egfr 111.5 >60 16 Laboratory test finding 09/16/2015 PSA Screening 2.046 ng/mL 0-4.0 17 Erythrocyte Sed Rate 4 mm/Hr 0-20 Laboratory test finding 09/16/2015 Alt (SGPT) 21 U/L 7-52 Ast (Sgot) 19 U/L 13-39 C Reactive Protein 3.56 mg/L < 5.00 18 Blood Urea Nitrogen BUN 14 mg/dL 6-24 Creatinine 09/16/2015 Creatinine 0.90 mg/dL 0.67-1.17 Egfr Non- 86.7 >60 Egfr 111.5 >60 19 Laboratory test 09/16/2015 PSA Screening 2.046 ng/mL 0-4.0 20 finding Laboratory test 08/13/2015 Urine Culture And SEE RESULT 21 finding Sensitivities BELOW Inr/Protime 08/08/2015 Inr 2.26 High 0.89-1.11 Inr/Protime 06/23/2015 Inr 2.95 High 0.89-1.11 22 Comp Metabolic 05/24/2015 Sodium 140 mmol/L 133-145 Panel Potassium 4.0 mmol/L 3.5-5.0 Chloride 104 mmol/L 101-111 Co2 Carbon Dioxide 31 mmol/L 22-32 Anion Gap 5 mmol/L 2-11 Glucose 85 mg/dL 70-100 Blood Urea Nitrogen 13 mg/dL 6-24 Creatinine 0.89 mg/dL 0.67-1.17 BUN/Creatinine Ratio 14.6 8-20 Calcium 9.2 mg/dL 8.6-10.3 Total Protein 6.2 g/dL Low 6.4-8.9 Albumin 4.5 g/dL 3.2-5.2 Globulin 1.7 g/dL Low 2-4 Albumin/Globulin Ratio 2.6 1-3 Total Bilirubin 0.40 mg/dL 0.2-1.0 Alkaline Phosphatase 49 U/L 34-104 Alt 23 U/L 7-52 Ast 20 U/L 13-39 Egfr Non- 87.8 >60 Egfr 112.9 >60 23 Laboratory test finding 05/24/2015 C Reactive Protein 2.93 mg/L < 5.00 24 CBC Auto Diff 05/24/2015 White Blood Count 5.4 10^3/uL 4.8-10.8 Red Blood Count 4.62 10^6/uL 4.0-5.4 Hemoglobin 15.3 g/dL 14.0-18.0 Hematocrit 46 % 42-52 Mean Corpuscular Volume 100 fL High 80-94 Mean Corpuscular Hemoglobin 33 pg High 27-31 Mean Corpuscular HGB Conc 33 g/dL 31-36 Red Cell Distribution Width 13 % 10.5-15 Platelet Count 228 10^3/uL 150-450 Mean Platelet Volume 7 um3 Low 7.4-10.4 Abs Neutrophils 2.6 10^3/uL 1.5-7.7 Abs Lymphocytes 1.8 10^3/uL 1.0-4.8 Abs Monocytes 0.8 10^3/uL 0-0.8 Abs Eosinophils 0.2 10^3/uL 0-0.6 Abs Basophils 0 10^3/uL 0-0.2 Abs Nucleated RBC 0 10^3/uL Granulocyte % 47.6 % 38-83 Lymphocyte % 33.9 % 25-47 Monocyte % 14.3 % High 1-9 Eosinophil % 3.5 % 0-6 Basophil % 0.7 % 0-2 Nucleated Red Blood Cells % 0.1 Laboratory test finding 05/24/2015 Erythrocyte Sed Rate 5 mm/Hr 0-20 Inr/Protime 05/19/2015 Inr 2.18 High 0.78-1.07 Inr/Protime 04/13/2015 Inr 2.90 High 0.78-1.07 Inr/Protime 03/18/2015 Inr 2.11 High 0.78-1.07 Laboratory test finding 03/09/2015 Inr/Protime 3.51 High 0.78-1.07 Inr/Protime 02/10/2015 Inr 2.60 High 0.78-1.07 Comp Metabolic Panel 12/09/2014 Sodium 139 mmol/L 133-145 Potassium 4.5 mmol/L 3.5-5.0 Chloride 107 mmol/L 101-111 Co2 Carbon Dioxide 27 mmol/L 22-32 Anion Gap 5 mmol/L 2-11 Glucose 92 mg/dL 70-100 Blood Urea Nitrogen 15 mg/dL 6-24 Creatinine 0.90 mg/dL 0.67-1.17 BUN/Creatinine Ratio 16.7 8-20 Calcium 9.1 mg/dL 8.6-10.3 Total Protein 6.2 g/dL Low 6.4-8.9 Albumin 4.4 g/dL 3.2-5.2 Globulin 1.8 g/dL Low 2-4 Albumin/Globulin Ratio 2.4 1-3 Total Bilirubin 0.40 mg/dL 0.2-1.0 Alkaline Phosphatase 52 U/L 34-104 Alt 21 U/L 7-52 Ast 19 U/L 13-39 Egfr Non- 86.7 >60 Egfr 111.5 >60 25 Laboratory test finding 12/09/2014 C Reactive Protein 2.60 mg/L < 5.00 26 CBC Auto Diff 12/09/2014 White Blood Count 4.9 10^3/uL 4.8-10.8 Red Blood Count 4.61 10^6/uL 4.0-5.4 Hemoglobin 15.4 g/dL 14.0-18.0 Hematocrit 46 % 42-52 Mean Corpuscular Volume 99 fL High 80-94 Mean Corpuscular Hemoglobin 34 pg High 27-31 Mean Corpuscular HGB Conc 34 g/dL 31-36 Red Cell Distribution Width 13 % 10.5-15 Platelet Count 220 10^3/uL 150-450 Mean Platelet Volume 8 um3 7.4-10.4 Abs Neutrophils 2.7 10^3/uL 1.5-7.7 Abs Lymphocytes 1.5 10^3/uL 1.0-4.8 Abs Monocytes 0.6 10^3/uL 0-0.8 Abs Eosinophils 0.1 10^3/uL 0-0.6 Abs Basophils 0 10^3/uL 0-0.2 Abs Nucleated RBC 0.01 10^3/uL Granulocyte % 54.6 % 38-83 Lymphocyte % 30.6 % 25-47 Monocyte % 11.8 % High 1-9 Eosinophil % 2.0 % 0-6 Basophil % 1.0 % 0-2 Nucleated Red Blood Cells % 0.1 Laboratory test finding 12/09/2014 Erythrocyte Sed Rate 4 mm/Hr 0-20 Quantiferon Gold TB 12/09/2014 M tuberculosis by Negative Negative Quantiferon Tuberculosis Antigen Value 0.00 IU/mL 27 Laboratory test 12/09/2014 Vitamin B12 168 pg/mL Low 180-914 28 finding Laboratory test 12/09/2014 Vitamin D Total 25(Oh) 35.5 ng/mL 30-50 finding Inr/Protime 12/09/2014 Inr 2.06 High 0.78-1.07 Inr/Protime 11/04/2014 Inr 2.53 High 0.78-1.07 Laboratory test 11/04/2014 TSH (Thyroid 3.06 IU/mL 0.34-5.60 finding Stimulating Horm) Free T3 2.50 pg/mL 2.5-3.9 Free T4 1.10 ng/mL 0.61-1.12 Comp Metabolic Panel 10/01/2014 Sodium 140 mmol/L 133-145 Potassium 4.2 mmol/L 3.5-5.0 Chloride 106 mmol/L 101-111 Co2 Carbon Dioxide 29 mmol/L 22-32 Anion Gap 5 mmol/L 2-11 Glucose 88 mg/dL 70-100 Blood Urea Nitrogen 13 mg/dL 6-24 Creatinine 1.01 mg/dL 0.67-1.17 BUN/Creatinine Ratio 12.9 8-20 Calcium 9.4 mg/dL 8.6-10.3 Total Protein 6.4 g/dL 6.4-8.9 Albumin 4.5 g/dL 3.2-5.2 Globulin 1.9 g/dL Low 2-4 Albumin/Globulin Ratio 2.4 1-3 Total Bilirubin 0.40 mg/dL 0.2-1.0 Alkaline Phosphatase 45 U/L 34-104 Alt 26 U/L 7-52 Ast 25 U/L 13-39 Egfr Non- 76.1 >60 Egfr 97.9 >60 29 Laboratory test finding 10/01/2014 C Reactive Protein 2.38 mg/L < 5.00 30 CBC Auto Diff 10/01/2014 White Blood Count 5.5 10^3/uL 4.8-10.8 Red Blood Count 4.55 10^6/uL 4.0-5.4 Hemoglobin 15.4 g/dL 14.0-18.0 Hematocrit 45 % 42-52 Mean Corpuscular Volume 98 fL High 80-94 Mean Corpuscular Hemoglobin 34 pg High 27-31 Mean Corpuscular HGB Conc 35 g/dL 31-36 Red Cell Distribution Width 13 % 10.5-15 Platelet Count 216 10^3/uL 150-450 Mean Platelet Volume 8 um3 7.4-10.4 Abs Neutrophils 2.9 10^3/uL 1.5-7.7 Abs Lymphocytes 1.7 10^3/uL 1.0-4.8 Abs Monocytes 0.7 10^3/uL 0-0.8 Abs Eosinophils 0.2 10^3/uL 0-0.6 Abs Basophils 0.1 10^3/uL 0-0.2 Abs Nucleated RBC 0 10^3/uL Granulocyte % 52.1 % 38-83 Lymphocyte % 31.5 % 25-47 Monocyte % 11.8 % High 1-9 Eosinophil % 3.5 % 0-6 Basophil % 1.1 % 0-2 Nucleated Red Blood Cells % 0 Laboratory test finding 10/01/2014 Erythrocyte Sed Rate 5 mm/Hr 0-20 Inr/Protime 10/01/2014 Inr 2.61 High 0.78-1.07 31 Inr/Protime 09/06/2014 Inr 2.48 High 0.85-1.06 Inr/Protime 07/12/2014 Inr 2.52 High 0.85-1.06 Inr/Protime 07/01/2014 Inr 2.50 High 0.85-1.06 Inr/Protime 06/22/2014 Inr 1.57 High 0.85-1.06 Inr/Protime 05/24/2014 Inr 2.46 High 0.85-1.06 CBC No Diff 04/15/2014 White Blood Count 6.2 10^3/uL 4.8-10.8 Red Blood Count 4.52 10^6/uL 4.0-5.4 Hemoglobin 14.9 g/dL 14.0-18.0 Hematocrit 44 % 42-52 Mean Corpuscular Volume 98 fL High 80-94 Mean Corpuscular Hemoglobin 33 pg High 27-31 Mean Corpuscular HGB Conc 34 g/dL 31-36 Red Cell Distribution Width 14 % 10.5-15 Platelet Count 236 10^3/uL 150-450 Mean Platelet Volume 7 um3 Low 7.4-10.4 Laboratory test finding 04/15/2014 C Reactive Protein 1.87 mg/L < 5.00 32 Comp Metabolic Panel 04/15/2014 Sodium 141 mmol/L 133-145 Potassium 4.2 mmol/L 3.7-5.6 Chloride 108 mmol/L 101-111 Co2 Carbon Dioxide 29 mmol/L 22-32 Anion Gap 4 mmol/L 2-11 Glucose 84 mg/dL 70-100 Blood Urea Nitrogen 15 mg/dL 6-24 Creatinine 0.94 mg/dL 0.67-1.17 BUN/Creatinine Ratio 16.0 8-20 Calcium 8.9 mg/dL 8.6-10.3 Total Protein 5.9 g/dL Low 6.4-8.9 Albumin 4.3 g/dL 3.2-5.2 Globulin 1.6 g/dL Low 2-4 Albumin/Globulin Ratio 2.7 1-3 Total Bilirubin 0.40 mg/dL 0.2-1.0 Alkaline Phosphatase 48 U/L 34-104 Alt 15 U/L 7-52 Ast 16 U/L 13-39 Egfr Non- 82.7 >60 Egfr 106.4 >60 33 Inr/Protime 03/04/2014 Inr 2.05 High 0.85-1.06 Inr/Protime 01/01/2014 Inr 2.73 High 0.85-1.06 Inr/Protime 11/12/2013 Inr 2.03 High 0.85-1.06 1 Because ethnic data is not always readily available, this report includes an eGFR for both -Americans and non- Americans. The National Kidney Disease Education Program (NKDEP) does not endorse the use of the MDRD equation for patients that are not between the ages of 18 and 70, are , have extremes of body size, muscle mass, or nutritional status, or are non- or non-. According to the National Kidney Foundation, irrespective of diagnosis, the stage of the disease is based on the level of kidney function: Stage Description GFR(mL/min/1.73 m(2)) 1 Kidney damage with normal or decreased GFR 90 2 Kidney damage with mild decrease in GFR 60-89 3 Moderate decrease in GFR 30-59 4 Severe decrease in GFR 15-29 5 Kidney failure <15 (or dialysis) 2 Acute inflammation: >10.00 3 Please note the change in INR reference range effective 17. 4 [id number] 5 SEE RESULT BELOW Name: JIMBO CUADRA : [address]: Govind Florez MD Acct: [id number] Unit: [id number] AGE: 61 Location: [facility] Re02/05/17 SEX: M Status: DEP REF SPEC: [id number] ISAIAH: 02/05/17-36 [facility] DR: Govind Florez MD REQ: [id number] RECD: 02/05/17-1229 STATUS: COMP [facility] DR: Joelle Galicia DO _ SOURCE: [facility]: ORDERED: Clotest COMMENTS: [id number] Procedure Result Reported Site Clotest Final 02/06/17745 ML Clotest Negative * ML - MAIN LAB ([facility]) . END OF REPORT * ML=Testing performed at Main Lab DEPARTMENT OF PATHOLOGY, [address] [place] [address] Jimbo Cooley M.D. Director [facility] # [id number] 6 [id number] 7 SEE RESULT BELOW Name: JIMBO CUADRA DOB: [address]: Govind Florez MD Acct: [id number] Unit: [id number] AGE: 61 Location: [facility] Re02/05/17 SEX: M Status: DEP REF SPEC: [id number] ISAIAH: 02/05/17-[address]: Govind Florez MD REQ: [id number] RECD: 02/05/17-1210 STATUS: CHUN CESPEDES DR: Zackery Galicia DO _ ORDERED: LEVEL 4/2 COMMENTS: [id number] FINAL DIAGNOSIS 1. Esophagus, random biopsies: -- Squamous epithelium with no significant pathologic abnormality. -- No evidence of allergic/eosinophilic or reflux esophagitis identified. -- No glandular component identified. 2. Colon, rectum, biopsy: -- Hyperplastic polyp. CLINICAL HISTORY Dysphagia; screening POST-OPERATIVE DIAGNOSIS Esophagus - biopsy for eosinophilic esophagitis; stomach - normal, CLOtest; duodenum - normal. Colonoscopy to terminal ileum - rectal polyp biopsied GROSS DESCRIPTION 1. The specimen is received in formalin labeled, Random Esophageal Biopsies , and consists of a 0.5 x 0.4 x 0.1 cm aggregate of rivera-white irregular soft tissue fragments which is submitted entirely in one cassette. 2. The specimen is received in formalin labeled, Biopsy Rectal Polyp, and consists of a 0.2 x 0.2 x 0.2 cm brewer irregular to polypoid soft tissue fragment which is submitted entirely in one cassette. Signed (signature on file) Jimbo Cooley MD 1345 END OF REPORT * ML=Testing performed at Main Lab DEPARTMENT OF PATHOLOGY, [address] [place] [address] Jimbo Cooley M.D. Director [facility] # [id number] 8 Desirable <150 Borderline high 150-199 High 200-499 Very High >500 9 Desirable <200 Borderline high 200-239 High >239 10 Low <40 Desirable: 40-60 High: >60 11 Desirable: <100 mg/dL Near Optimal: 100-129 mg/dL Borderline High: 130-159 mg/dL High: 160-189 mg/dL Very High: >189 mg/dL 12 Serum levels of PSA measured using the Vega Xray Imatek DXI Hybritech immunoassay should not be interpreted as absolute evidence of the presence or absence of disease. The PSA value should be used in conjunction with other pertinent clinical diagnostic procedures. The values obtained with different assay methods or kits cannot be used interchangeably. 13 [id number] 14 SEE RESULT BELOW Name: JIMBO CUADRA : [address]: Katie RYAN Acct: [id number] Unit: [id number] AGE: 60 Location: [facility] Re08/15/16 SEX: M Status: REG REF SPEC: [id number] ISAIAH: 08/15/[address]: Katie RYAN REQ: [id number] RECD: 08/16/16 STATUS: COMP _ SOURCE: WOUND SPDESC:FINGER ORDERED: Culture Stain COMMENTS: [id number] Specimen Description RIGHT FOURTH FINGER Procedure Result Reported Site Wound/Misc Gram Stain Final 08/17/16- 722 ML No Neutrophils Observed No Organisms Seen Insufficient specimen material observed on gram stain. Wound/Misc Culture Final 08/18/16- 1031 ML No Growth Day 2 * ML - MAIN LAB ([facility]) . END OF REPORT * ML=Testing performed at Main Lab DEPARTMENT OF PATHOLOGY, [address] [place] [address] Jimbo Cooley M.D. Director [facility] # [id number] 15 Acute inflammation: >10.00 16 Because ethnic data is not always readily available, this report includes an eGFR for both -Americans and non- Americans. The National Kidney Disease Education Program (NKDEP) does not endorse the use of the MDRD equation for patients that are not between the ages of 18 and 70, are , have extremes of body size, muscle mass, or nutritional status, or are non- or non-. According to the National Kidney Foundation, irrespective of diagnosis, the stage of the disease is based on the level of kidney function: Stage Description GFR(mL/min/1.73 m(2)) 1 Kidney damage with normal or decreased GFR 90 2 Kidney damage with mild decrease in GFR 60-89 3 Moderate decrease in GFR 30-59 4 Severe decrease in GFR 15-29 5 Kidney failure <15 (or dialysis) 17 Serum levels of PSA measured using the Queerfeed Media DXI Hybritech immunoassay should not be interpreted as absolute evidence of the presence or absence of disease. The PSA value should be used in conjunction with other pertinent clinical diagnostic procedures. The values obtained with different assay methods or kits cannot be used interchangeably. 18 Acute inflammation: >10.00 19 Because ethnic data is not always readily available, this report includes an eGFR for both -Americans and non- Americans. The National Kidney Disease Education Program (NKDEP) does not endorse the use of the MDRD equation for patients that are not between the ages of 18 and 70, are , have extremes of body size, muscle mass, or nutritional status, or are non- or non-. According to the National Kidney Foundation, irrespective of diagnosis, the stage of the disease is based on the level of kidney function: Stage Description GFR(mL/min/1.73 m(2)) 1 Kidney damage with normal or decreased GFR 90 2 Kidney damage with mild decrease in GFR 60-89 3 Moderate decrease in GFR 30-59 4 Severe decrease in GFR 15-29 5 Kidney failure <15 (or dialysis) 20 Serum levels of PSA measured using the Queer[employer] Media DXI Hybritech immunoassay should not be interpreted as absolute evidence of the presence or absence of disease. The PSA value should be used in conjunction with other pertinent clinical diagnostic procedures. The values obtained with different assay methods or kits cannot be used interchangeably. 21 SEE RESULT BELOW Name: JIMBO CUADRA : [address]: Jaydon Alejandro MD Acct: [id number] Unit: [id number] AGE: 59 Location: [facility] Re08/13/15 SEX: M Status: DEP ER SPEC: [id number] ISAIAH: 08/13/15-0994 [facility] DR: Jaydon Alejandro MD REQ: [id number] RECD: 08/14/15-1221 STATUS: BERYL CESPEDES DR: Katie Abigail Galicia DO _ SOURCE: URINE SPDESC: ORDERED: Urine Culture Procedure Result Reported Site Urine Culture Final 08/15/15- 922 ML No Growth (<1,000 CFU/mL) * ML - MAIN LAB ([facility]) . END OF REPORT * ML=Testing performed at Main Lab DEPARTMENT OF PATHOLOGY, [address] [place] [address] Jimbo Cooley M.D. Director [facility] # [id number] 22 Effective immediately, due to a laboratory mean normal Protime change, the reference range for the INR has changed. 23 Because ethnic data is not always readily available, this report includes an eGFR for both -Americans and non- Americans. The National Kidney Disease Education Program (NKDEP) does not endorse the use of the MDRD equation for patients that are not between the ages of 18 and 70, are , have extremes of body size, muscle mass, or nutritional status, or are non- or non-. According to the National Kidney Foundation, irrespective of diagnosis, the stage of the disease is based on the level of kidney function: Stage Description GFR(mL/min/1.73 m(2)) 1 Kidney damage with normal or decreased GFR 90 2 Kidney damage with mild decrease in GFR 60-89 3 Moderate decrease in GFR 30-59 4 Severe decrease in GFR 15-29 5 Kidney failure <15 (or dialysis) 24 Acute inflammation: >10.00 25 Because ethnic data is not always readily available, this report includes an eGFR for both -Americans and non- Americans. The National Kidney Disease Education Program (NKDEP) does not endorse the use of the MDRD equation for patients that are not between the ages of 18 and 70, are , have extremes of body size, muscle mass, or nutritional status, or are non- or non-. According to the National Kidney Foundation, irrespective of diagnosis, the stage of the disease is based on the level of kidney function: Stage Description GFR(mL/min/1.73 m(2)) 1 Kidney damage with normal or decreased GFR 90 2 Kidney damage with mild decrease in GFR 60-89 3 Moderate decrease in GFR 30-59 4 Severe decrease in GFR 15-29 5 Kidney failure <15 (or dialysis) 26 Acute inflammation: >10.00 27 ADDITIONAL INFORMATION This is a qualitative test. The TB antigen IU/mL value is required for documentation on certain government reporting forms (e.g., Form I-693), but this value should not be used to monitor disease progression or response to therapy. Diagnosing or excluding tuberculosis disease, and assessing the probability of LTBI, require a combination of epidemiological, historical, medical, and diagnostic findings that should be taken into account when interpreting QuantiFERON-TB results. Test Performed by: [place] [address] Clinical Research Coordinator: Dwain Flores II, M.D., Ph.D. 28 Normal Range 180 to 914 Indeterminate Range 145 to 180 Deficient Range <145 29 Because ethnic data is not always readily available, this report includes an eGFR for both -Americans and non- Americans. The National Kidney Disease Education Program (NKDEP) does not endorse the use of the MDRD equation for patients that are not between the ages of 18 and 70, are , have extremes of body size, muscle mass, or nutritional status, or are non- or non-. According to the National Kidney Foundation, irrespective of diagnosis, the stage of the disease is based on the level of kidney function: Stage Description GFR(mL/min/1.73 m(2)) 1 Kidney damage with normal or decreased GFR 90 2 Kidney damage with mild decrease in GFR 60-89 3 Moderate decrease in GFR 30-59 4 Severe decrease in GFR 15-29 5 Kidney failure <15 (or dialysis) 30 Acute inflammation: >10.00 31 Please note: Effective September 08, 2014, the reference value for this test has changed due to the validation and activation of a new reagent lot number. 32 Acute inflammation: >10.00 33 Because ethnic data is not always readily available, this report includes an eGFR for both -Americans and non- Americans. The National Kidney Disease Education Program (NKDEP) does not endorse the use of the MDRD equation for patients that are not between the ages of 18 and 70, are , have extremes of body size, muscle mass, or nutritional status, or are non- or non-. According to the National Kidney Foundation, irrespective of diagnosis, the stage of the disease is based on the level of kidney function: Stage Description GFR(mL/min/1.73 m(2)) 1 Kidney damage with normal or decreased GFR 90 2 Kidney damage with mild decrease in GFR 60-89 3 Moderate decrease in GFR 30-59 4 Severe decrease in GFR 15-29 5 Kidney failure <15 (or dialysis) Procedures Date CPT Code Description Status Comment 07/30/2017 34552 Injection For Nerve Block, Completed Greater Occipital Nerve 04/08/2017 04170 I & D Abscess Simple Completed 02/05/2017 Colonoscopy Completed 2017:single polyp, hyperplastic, fu 10 yrsLab Order: 02/05/17 - Lab 07/23/2016 29895 Removal Of Foreign Body From Completed Ear 08/08/2015 90812 X-Ray Chest Two Views Completed 03/25/2015 25812 Excise Nail Bed & Matrix Completed 10/11/2014 71585 Inj Tendon/Ligament/Cyst Completed Encounters Type Date Location Provider CPT E/M Dx Office Visit 04/08/2017 2:15p Main Office Zackery Galicia D.O. 64898 L02.426 M54.5 Z23 Z41.8 Office Visit 11/22/2016 10:30a Main Office Zackery Galicia D.O. 33836 Z00.00 Office Visit 09/04/2016 10:30a Main Office Zackeyr Galicia D.O. 03847 H81.12 Z12.11 Office Visit 08/15/2016 3:00p [place] [address] L03.011 Office Visit 07/23/2016 4:00p Main Office Zackery Galicia D.O. 38683 L40.50 M54.5 T16.2xxA Office Visit 05/22/2016 10:00a Main Office Zackery Galicia D.O. 42052 K21.9 Z79.01 Z86.711 I10 N40.1 L40.50 Z23 Z41.8 Office Visit 11/22/2015 9:30a Main Office Zackery Galicia D.O. 71845 I10 H90.41 H90.42 H93.13 Office Visit 09/16/2015 9:45a Main Office Zackery Galicia D.O. 00442 N40.1 R04.0 Office Visit 08/16/2015 9:45a Main Office Zackery Galicia D.O. 08623 R31.0 N40.1 Office Visit 08/08/2015 11:30a Main Office Zackery Galicia D.O. 19258 R05 R91.8 Office Visit 07/18/2015 4:30p Main Office Celestine Chi M.D. 37078 R05 R91.8 Z71.2 Office Visit 06/23/2015 9:30a Main Office Zackery Galicia D.O. 89696 I10 Z79.01 L40.50 Office Visit 03/25/2015 1:15p Main Office Zackery Galicia D.O. 64702 703.0 681.11 110.1 Office Visit 03/23/2015 12:55p Main Office Zackery Galicia D.O. 13331 703.0 681.11 401.1 V58.61 696.0 Office Visit 12/22/2014 1:45p Main Office Zackery Galicia D.O. 49594 703.0 401.1 719.42 V58.83 696.0 110.1 V06.1 V07.2 Office Visit 11/22/2014 10:15a Main Office Zackery Galicia D.O. 03472 719.42 696.0 V58.83 V58.61 401.1 Office Visit 10/11/2014 10:15a Main Office Zackery Galicia D.O. 49905 719.42 726.32 Office Visit 10/20/2013 2:00p Main Office Zackery Galicia D.O. 65599 729.1 696.0 724.2 780.52 V58.83 Plan of Care Future Appointment(s):11/25/2017 8:55 am - Zackery Galicia D.O. at Main Akkkpj2807/30/2017 - Zackery Galicia D.O.M54.81 Occipital uqfpphidxC69.119 Migraine with aura, intractable, without status migrainosusNew Medication: Ondansetron HCL 4 mgFollow up:as scheduled
--- OUTSIDE RECORDS SUMMARY | 2017-08-02 14:20 | XMS REPORT | Continuity of Care Document ---
:1955 Author Organization [facility] Address [address], [place] [id number] Phone Care Team Providers Name Role Phone Sopchak DO, Zackery Unavailable Unavailable Sopchak DO, Zackery Unavailable Unavailable Allergies, Adverse Reactions, Alerts Substance Reaction Severity Status meloxicam Unknown Active Penicillins Unknown Active Medications Medication Instructions Dosage Effective Status Comments Dates (start - stop) Lyrica 75 mg capsule take 1 capsule by 75 MG - Active Reference #: oral route 3 [id number] times every day ENBREL SURECLICK 1ML INJECT 50 MG (1 Not Available - Active 4'S 50MG PEN) UNDER THE SKIN ONCE A WEEK SULFASALAZINE 500 MG TAKE THREE 1500 MG - Active TABLET TABLETS BY MOUTH TWICE A DAY AFTER MEALS Voltaren 1 % topical apply (2G) by 2 G - Active gel topical route 4 times every day to the affected area(s) as needed cyclobenzaprine 5 mg take 1-2 tablet - Active tablet by oral route every bedtime Excedrin Migraine as needed - Active 250 mg-250 mg-65 mg tablet tamsulosin ER 0.4 mg take 1 capsule by 0.4 MG - Active capsule,extended oral route every release 24 hr day 1/2 hour following the same meal each day candesartan 8 mg take 1 tablet by 8 MG - Active tablet oral route every day folic acid 800 mcg take 1 tablet by 0.8 MG - Active tablet oral route every day Vitamin D3 2,000 take 1 by Oral Not Available - Active unit capsule route once Dovonex 0.005 % apply by topical Not Available - Active topical cream route 2 times every day a thin layer to the affected area(s) ; rub in gently and completely as needed Imitrex 100 mg take 1 tablet by - Active tablet oral route once with fluids as early as possible after the onset of a migraine attack;may repeat after 2 hours if headache returns, not to exceed 200mgin 24hrs warfarin 4 mg tablet take 1 tablet by 4 MG - Active oral route every day levothyroxine 100 take 1 tablet by 100 MCG - Active mcg tablet oral route every day famotidine 10 mg take 1 tablet by 10 MG - Active tablet oral route every day as needed Problems Condition Effective Dates (start - stop) Clinical Status Other psoriatic arthropathy Fibromyalgia Cervicalgia Occipital neuralgia Other ferry terminal supervisor (current) drug therapy Other cervical disc disorders, unspecified cervical region Other cervical disc disorders, unspecified cervical region Other psoriatic arthropathy Fibromyalgia Other psoriatic arthropathy Fibromyalgia Other ferry terminal supervisor (current) drug therapy Cervicalgia Other psoriatic arthropathy Fibromyalgia Other skilled nursing (current) drug therapy Other cervical disc disorders, unspecified cervical region Other psoriatic arthropathy Fibromyalgia Other skilled nursing (current) drug therapy Other intervertebral disc disorders, lumbar region Pain in right hip Other psoriatic arthropathy Fibromyalgia Other intervertebral disc disorders, lumbar region Other psoriatic arthropathy Other skilled nursing (current) drug therapy Fibromyalgia Other cervical disc disorders, unspecified cervical region Other intervertebral disc disorders, lumbar region Other psoriatic arthropathy Fibromyalgia Other intervertebral disc disorders, lumbar region Other ferry terminal supervisor (current) drug therapy Psoriasis - Active Pneumonia - Active Migraine [...] Team Description For Visit Members [facility] [place] Specialist: Health Health dylan Vieira. [facility] [address], [facility], [address], [address] [place] [place], [place], [address], [place], [id number], [place], [id number], [place], [address]. [place] tel:[phone] tel:[phone] tel:[phone] [id number] ring Provider: Zackery Purvis, [address] [facility], [address]. tel:[phone] [facility] Nov-3 [place] [facility] dylan Vieira. [facility] 7 [address] PLLC, [address] [facility], [place], [place], [place], [id number], [id number], [place]. [place] tel:[phone] tel:[phone] Arthritis Arthritis Other cervical Nov- [place] Specialist: Health Health disc dylan Vieira. [facility] disorders, [address] [place], PLLC, [address] PLL[address] unspecified [address] cervical [place], [facility], regionOther [place], [address] [place], cervical disc [place], [address], [place], disorders, [id number], [place], [id number], [place], [address]. [place] cervical tel:[phone] tel:[phone] tel:[phone] region [phone] [id number] ring Provider: Zackery Purvis, 5 [facility], [address]. tel:[phone] Arthritis Arthritis Nov-2 [place] [facility] Health dylanterrell [facility] [address] PLLC, [address] [facility], [place], [place], [place], [place], [id number], [id number], [place]. [place] tel:[phone] tel:[phone] Arthritis Arthritis Other Nov-1 [place] Specialist: Health Health psoriatic 0 dylan Vieira. [facility] arthropathyFib 7 [address] [place], PLLC, [address] rom[address]algiaCervi [address] calgiaOccipita [place], [facility], l [place], [address] [place], neuralgiaOther [place], [address], [place], skilled nursing [id number], [place], [id number], [place], [address]. [place] therapy tel:[phone] tel:[phone] tel:[phone] [id number] ring Provider: Zackery Galicia DO [place], [address] , [place], [address]. tel:[phone] Arthritis Arthritis Other [place] Referring Health Health psoriatic 4 dylanterrell Walkeri. Provider: Erna Umanzor arthropathyFib 7 5794 Zackery PLLC, 5794 PLLC romyalgiaOther [facility] ferry terminal supervisor [place], [place], [address] [place], (current) drug [place], [place], therapy [place], [address], [place], [place], [id number], [place], [address]. [id number], [place]. tel:[phone] [place] tel:[phone] tel:[phone] Arthritis Arthritis Other December- [place] Referring Health Health psoriatic 6 dylan Vieira. Provider: Erna Umanzor arthropathyFib 7 5794 Z[facility] PLL[facility], 5794 PLLC romyalgiaOther [facility] ferry terminal supervisor [place], [place], 5 [place], (current) drug [place], [place], therapyOther [place], St, [place], [place], intervertebral [id number], [place], [address]. [id number], disc [place]. 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 5[address] Provider: Erna Umanzor arthropathyOth 7 [facility] Zackery PLLC, 5794 PLLC er ferry terminal supervisor [place], [facility] (current) drug [place], [place], 5 [place], therapyFibromy [place], [place], algiaOther [id number], St, [place], [place], [place], [address]. [id number], disorders, tel:+ tel:[phone] [place] unspecified [phone] tel:[phone] regionOther intervertebral disc disorders, lumbar region Arthritis Arthritis Other cervical Jun- [place] [facility] Health disc 6-201 dylan Vieira. Associates Erna disorders, 6 5794 PLLC, 5794 PLLC unspecified [facility] cervical [place], [place], region [place], [place], [place], [place], [id number], [id number], [place]. [place] tel:+ tel:[phone] Arthritis Arthritis Other Jun- [place] Referring Health Health psoriatic 1- dylan Vieira. Provider: Erna Umanzor arthropathyFib 6 5794 Zackery PLLC, 5794 PLLC romyalgiaOther [facility] ferry terminal supervisor [place], [place], 5 [place], (current) drug [place], [place], therapyCervica [place], St, [place], [place], lgia [id number], [place], [address]. [id number], [place]. tel:+ [place] tel:+ [phone] tel:+ [phone] Arthritis Arthritis Other Mar- [place] Referring Health Health psoriatic 0-201 WIL Paz. Provider: Erna Umanzor arthropathyFib 6 5794 Zackery PLLC, 5794 PLLC romyalgiaOther [facility] intervertebral [place], [place], 5 [place], disc [place], [place], disorders, [place], St, [place], [place], lumbar [id number], [place], [address]. [id number], regionOther [place]. tel:+[phone] [place] skilled nursing tel:[phone] tel:[phone] (current) drug [phone] therapy Arthritis Arthritis Other [facility] Referring Health Health psoriatic 3-201 MD Lai. Provider: Erna Umanzor arthropathyFib 6 5794 Zack[facility] PLLC, 5794 PLLC romyalgiaOther [facility] DO [facility] intervertebral [place], [place], 5 [place], disc [place], [place], disorders, [place], St, [place], [place], lumbar region [id number], [place], [address]. [id number], [place]. tel:[phone] tel:[phone] tel:[phone] Arthritis Arthritis Other [facility] 6-201 MD Lai. Provider: Erna Umanzor arthropathyFib 6 5794 Z[facility] PLLC, 5794 PLLC romyalgia [facility] Sopchak DO [facility] [place], [place], 5 [place], [place], [place], [place], St, [place], [place], [id number], [place], [address]. [id number], [place]. tel:[phone] tel:[phone] tel:[phone] Family History Family Member Diagnosis Age At [...] Other Provider years or older Afluria Quad 1900-0589 Influenza, injectable, trivalent, completed - Note: approx - Completed split virus, 4 years and older, reason: Other Provider Fluvirin [id number] Influenza, split virus, completed - Completed reason: Other injectable, 3 years and older Provider Fluvirin [id number] Pneumococcal polysaccharide PPV23 completed - Completed reason: Other Provider Payers Payer name Insurance type Covered democrat ID Authorization(s) BCBS No Referral Required [id number] Social History Type Description Quantity Date Captured [...] Date Type Action Status Referral Ordered: ordered He Spence (related to Other cervical disc disorders, unspecified cervical region) Referral Referred To: ordered He, Spence [address] [place], [phone] Ordered: Referrals: Bebe Cutler. Evaluate and treat Referral Ordered: ordered CERVICAL SPINE X-RAY, COMPLETE AND FLEXION EXTENSION Referral Ordered: ordered HIP, XRAY UNILATERAL PELVIS, [...] Treatment Unknown Instructions Date Instruction Additional Information Avoid live vaccines Discussed importance of holding DMARDs/ biologics if patient develops an infection and to notify the treating physician Labs ordered to check disease activity. Labs ordered to check blood counts, liver and kidney functions to monitor safety of medication. continue same medication plan Discussed importance of holding DMARDs/ biologics if [...]
--- OUTSIDE RECORDS SUMMARY | 2017-08-02 14:21 | XMS REPORT | Continuity of Care Document ---
:1955 Author Organization [facility] Address [address], [place] [id number] Phone Care Team Providers Name Role Phone Sopchak DO, Zackery Unavailable Unavailable Sopchak DO, Zackery Unavailable Unavailable Allergies, Adverse Reactions, Alerts Substance Reaction Severity Status meloxicam Unknown Active Penicillins Unknown Active Medications Medication Instructions Dosage Effective Status Comments Dates (start - stop) SULFASALAZINE 500 MG TAKE THREE 1500 MG - Active TABLET TABLETS BY MOUTH TWICE A DAY AFTER MEALS cyclobenzaprine 5 mg take 1-2 tablet - Active tablet by oral route every bedtime Voltaren 1 % topical apply (2G) by 2 G - Active gel topical route 4 times every day to the affected area(s) as needed Enbrel SureClick 50 INJECT 50 MG (1 Not Available - Active mg/mL (0.98 mL) PEN) UNDER THE subcutaneous pen SKIN ONCE A WEEK injector Lyrica 75 mg capsule take 1 capsule by 75 MG - Active DO NOT FILL oral route 3 UNTIL times every day 06/11/17 levothyroxine 100 take 1 tablet by 100 [...] arthropathy Fibromyalgia Other psoriatic arthropathy Fibromyalgia Other termite helper (current) drug therapy Cervicalgia Other psoriatic arthropathy Fibromyalgia Cervicalgia Occipital neuralgia Other termite helper (current) drug therapy Other psoriatic arthropathy Fibromyalgia Other correction (current) drug therapy Other cervical disc disorders, unspecified cervical region Other psoriatic arthropathy Fibromyalgia Other termite helper (current) drug therapy Other intervertebral disc disorders, lumbar region Pain in right hip Other psoriatic arthropathy Fibromyalgia Other intervertebral disc disorders, lumbar region Other psoriatic arthropathy Other termite helper (current) drug therapy Fibromyalgia Other cervical disc disorders, unspecified cervical region Other intervertebral disc disorders, lumbar region Other psoriatic arthropathy Fibromyalgia Other intervertebral disc disorders, lumbar region Other correction (current) drug therapy Psoriasis - Active Pneumonia [...] Team Description For Visit Members Arthritis Arthritis Jun-2 [facility] 0-201 dylan Vieira. [facility] 7 [address] [facility], 5794 [facility], [place], [place], [id number], [id number], [place]. [place] tel:[phone] tel:[phone] Arthritis Arthritis Other psoriatic Nov-1 [facility]ibr [facility] Provider: Erna Umanzor omyalgiaCervica 7 5794 [facility], 5794 [facility]C lgiaOccipital [facility] neuralgiaOther [place], [place], 5 [place], termite helper [place], [place], (current) drug [place], [place], therapy [id number], [place], [id number], [place], [address]. [place] tel:+[phone] tel:+60 tel:[phone] Arthritis Arthritis Oct-3 [facility] 0-201 dylan Isha. [facility] 7 5794 PLLC, 5794 PLLC [facility] [place], [place], [place], [place], [place], [id number], [id number], [place]. [place] tel:+ tel:[phone] Arthritis Arthritis Other psoriatic Aug-0 [facility] arthropathyFibr 4-[facility]. Provider: Erna Umanzor omyalgiaOther 7 5794 [facility], 5794 [facility] correction [facility] (current) drug [place], [place], [place], therapy [place], [place], [place], [place], [id number], [place], [id number], [place], [address]. [place] tel:+[phone] tel:+607 tel:[phone] Arthritis Arthritis Other psoriatic May-2 [facility] arthropathyFibr 6-201 dylan Isha. Provider: Erna Umanzor omyalgiaOther 7 5794 [facility], 5794 PLL[facility] termite helper [facility] (current) drug [place], [place], 5 [place], therapyOther [place], [place], intervertebral [place], [place], [place], disc disorders, [id number], [place], [id number], [place], [address]. [place] regionPain in tel:[phone] tel:[phone] tel:[phone] right hip [phone] Arthritis Arthritis Other psoriatic Sep- Shreya OPERATIONS PLANNER-C Referring Health Health arthropathyOthe 7 [place]. 5794 Provider: Erna frey correction 7 [facility], 5794 PLLC (current) drug [place], [facility] therapyFibromya [place], [place], 5 [place], lgiaOther [place], [place], cervical disc [id number], St, [place], disorders, [place]. [place], [id number], unspecified tel:+[phone] [place], [address]. [place] cervical [id number] tel:+[phone] tel:[phone] regionOther [id number] intervertebral disc disorders, lumbar region Arthritis Arthritis Other cervical Nov- [facility] disc disorders, dylan Isha. Erna Umanzor unspecified 6 5794 PLLC, 5794 PLLC cervical region [facility] [place], [place], [place], [place], [place], [id number], [id number], [place]. [place] tel:[phone] tel:[phone] Arthritis Arthritis Other psoriatic Nov- [facility] Referring Health Health arthropathyFibr dylan Vieira. Provider: Erna Umanzor omyalgiaOther 6 5794 [facility], 5794 PLLC correction [facility] (current) drug [place], [place], 5 [place], therapyCervical [place], [place], erik [place], [place], [place], [id number], [place], [id number], [place], [address]. [place] tel:+[phone] tel:+607 tel:[phone] Arthritis Arthritis Other psoriatic Aug- [place] Referring Health Health arthropathyFibr 0-201 WIL Paz. Provider: Erna Umanzor omyalgiaOther 6 5794 [facility], 5794 PLLC intervertebral [facility] disc disorders, [place], [place], 5 [place], lumbar [place], [place], regionOther [place], , [place], correction [id number], [place], [id number], [place], [address]. [place] therapy tel:+[phone] tel:+60 tel:[phone] Arthritis Arthritis Other psoriatic Apr-1 [facility] Referring [facility] arthropathyFibr 3-201 MD Lai. Provider: Associates Erna omyalgiaOther 6 5794 [facility], 5794 PLLC intervertebral [facility] disc disorders, [place], [place], 5 [place], lumbar region [place], [place], [place], [place], [place], [id number], [place], [id number], [place], [address]. [place] tel:+[phone] tel:+607 tel:[phone] Arthritis Arthritis Other psoriatic Andrade-0 [facility] Referring [facility] arthropathyFibr 6-201 MD Lai. Provider: Erna Umanzor omyalgia 6 5794 [facility], 5794 PLLC [facility] [place], [place], 5 [place], [place], [place], [place], [place], [place], [id number], [place], [id number], [place], [address]. [place] tel:+[phone] tel:+60 tel:[phone] Family History Family Member Diagnosis Age At [...] Other Provider years or older Afluria Quad 3026-8842 Influenza, injectable, trivalent, completed - Note: approx - Completed split virus, 4 years and older, reason: Other Provider Fluvirin [id number] Influenza, split virus, completed - Completed reason: Other injectable, 3 years and older Provider Fluvirin [id number] Pneumococcal polysaccharide PPV23 completed - Completed reason: Other Provider Payers Payer name Insurance type Covered constitution party ID Authorization(s) BCBS No Referral Required [id number] Social History Type Description Quantity Date Captured Unknown Vital Signs Date / Height Weight BMI [...]
--- OUTSIDE RECORDS SUMMARY | 2017-08-02 14:21 | XMS REPORT | Continuity of Care Document ---
:1955 Author Organization [facility] Address [address], [place] [id number] Phone Care Team Providers Name Role Phone Sopchak DO, Zackery Unavailable Unavailable Sopchak DO, Zackery Unavailable Unavailable Allergies, Adverse Reactions, Alerts Substance Reaction Severity Status meloxicam Unknown Active Penicillins Unknown Active Medications Medication Instructions Dosage Effective Status Comments Dates (start - stop) Lyrica 75 mg capsule take 1 capsule by 75 MG - Active Reference #: oral route 3 [id number] times every day ENBREL SURECLICK 1ML INJECT [...] day to the affected area(s) as needed Excedrin Migraine as needed - Active 250 mg-250 mg-65 mg tablet famotidine 10 mg take 1 tablet by 10 MG - Active tablet oral route every day as needed tamsulosin ER 0.4 mg take 1 capsule [...] Active mcg tablet oral route every day Problems Condition Effective Dates (start - stop) Clinical Status Other cervical disc disorders, unspecified cervical region Other cervical disc disorders, unspecified cervical region Other psoriatic arthropathy Fibromyalgia Cervicalgia Occipital neuralgia Other fdc (current) drug therapy Other psoriatic arthropathy Fibromyalgia Other fdc (current) drug therapy Cervicalgia Other psoriatic arthropathy Fibromyalgia Other psoriatic arthropathy Fibromyalgia Other dedicated intermodal truck driver (current) drug therapy Other cervical disc disorders, unspecified cervical region Other psoriatic arthropathy Fibromyalgia Other fdc (current) drug therapy Other intervertebral disc disorders, lumbar region Pain in right hip Other psoriatic arthropathy Fibromyalgia Other intervertebral disc disorders, lumbar region Other psoriatic arthropathy Fibromyalgia Other intervertebral disc disorders, lumbar region Other dedicated intermodal truck driver (current) drug therapy Other psoriatic arthropathy Other dedicated intermodal truck driver (current) drug therapy Fibromyalgia Other cervical disc [...] Team Description For Visit Members Arthritis Arthritis [facility] 0-201 dylan Vieira. [facility] 7 5794 [facility], 5794 [facility], [place], [place], [place], [id number], [id number], [place]. [place] tel:[phone] tel:[phone] Arthritis Arthritis Other cervical Nov- [place] Specialist: Health Health disc dylan Vieira. Bebe Umanzor disorders, 7 5794 [facility], 5[address] PLLC unspecified [address] cervical [place], [facility], regionOther [place], [address] [place] [place], cervical disc [place], 203, [place], disorders, [id number], [place], [id number], [place], [address]. [place] cervical tel: tel: tel:[phone] region [phone] ring Provider: Zackery Purvis, [address] [place], [address]. tel:[phone] Arthritis Arthritis Nov-2 [place] 0- dylan Vieira. Erna Associates 7 5794 PLLC, 5794 PLLC [facility], [place], [place], [place], [place], [id number], [id number], [place]. [place] tel: tel: [phone] Arthritis Arthritis Other Jun- [place] Specialist: Health Health psoriatic 0 dylan Vieira. Bebe Umanzor arthropathyFib 7 5794 He [facility], 5794 PLLC romyalgiaCervi [address] calgiaOccipita [place], [facility], l [place], [address] [place], neuralgiaOther [place], 203, [place], dedicated intermodal truck driver [id number], [place], [id number], ([place], [address]. [place] therapy tel:[phone] tel:315 tel:[phone] [phone] ring Provider: Zackery [place], 5 [place], [address]. tel:[phone] Arthritis Arthritis Other Mar- [place] Referring Health Health psoriatic dylan Vieira. Provider: Erna Umanzor arthropathyFib 7 5794 [facility], 5794 PLLC romyalgiaOther [facility] [place] fdc [place], [place], 5 [place], (current) drug [place], [place], therapy [place], [place], [place], [place], [id number], [place], [address]. [id number], [place]. tel:[phone] [place] tel:[phone] tel:[phone] Arthritis Arthritis Other December- [place] Referring Health Health psoriatic dylan Vieira. Provider: Erna Umanzor arthropathyFib 7 5794 [facility], 5794 PLLC romyalgiaOther [facility] dedicated intermodal truck driver [place], [place], 5 [place], (current) drug [place], [place], therapyOther [place], St, [place], [place], intervertebral [id number], [place], [address]. [id number], disc [place]. tel:+[phone] [place] disorders, tel:[phone] tel:[phone] regionPain in right hip Arthritis Arthritis Other Sep- Shreya [employer] Referring Health Health psoriatic [place]. 5794 Provider: Erna Umanzor arthropathyOth 7 [facility], 5794 PLLC er dedicated intermodal truck driver [place], [facility] (current) drug [place], [place], 5 [place], therapyFibromy [place], [place], algiaOther [id number], St, [place], [place], [place], [address]. [id number], disorders, tel:+[phone] tel:+[phone] [place] unspecified [id number] tel:[phone] cervical [phone] regionOther intervertebral disc disorders, lumbar region Arthritis Arthritis Other cervical [facility] Health Health disc dylan Vieira. Erna Umanzor disorders, 6 5794 PLLC, 5794 PLLC unspecified [facility] cervical [place], [place], region [place], [place], [place], [id number], [id number], [place]. [place] tel:[phone] tel:[phone] Arthritis Arthritis Other [place] Referring Health Health psoriatic 1- dylan Walkeri. Provider: Erna Umanzor arthropathyFib 6 5794 [facility], 5794 PLLC romyalgiaOther [facility] dedicated intermodal truck driver [place], [place], 5 [place], (current) drug [place], [place], therapyCervica [place], St, [place], [place], lgia [id number], [place], [address]. [id number], [place]. tel:+[phone] [place] tel:[phone] tel:[phone] Arthritis Arthritis Other [place] Referring Health Health psoriatic 0- WIL Paz. Provider: Erna Umanzor arthropathyFib 6 5794 [facility], 5794 PLLC romyalgiaOther [facility] DO [facility] intervertebral [place], [place], 5 [place], disc [place], [place], disorders, [place], St, [place], [place], lumbar [id number], [place], [address]. [id number], regionOther [place]. tel:+[phone] [place] fdc tel:[phone] tel:[phone] (current) drug [id number] therapy Arthritis Arthritis Other [facility] Referring [facility] Health psoriatic 3- MD Lia. Provider: Erna Umanzor arthropathyFib 6 5794 [facility], 5794 PLLC romyalgiaOther [facility] intervertebral [place], [place], 5 [place], disc [place], [place], disorders, [place], St, [place], [place], lumbar region [id number], [place], [address]. [id number], [place]. tel:+[phone] [place] tel:[phone] tel:[phone] Arthritis Arthritis Other [facility] Referring [facility] Health psoriatic 6- MD Lai. Provider: Erna Umanzor arthropathyFib 6 5794 [facility], 5794 PLLC romyalgia [facility] Sopchak DO [facility] [place], [place], 5 [place], [place], [place], [place], [place], [place], [id number], [place], [address]. [id number], . tel:[phone] tel:[phone] tel:[phone] Family History Family Member Diagnosis Age At [...] Other Provider years or older Afluria Quad 5261-7754 Influenza, injectable, trivalent, completed - Note: approx - Completed split virus, 4 years and older, reason: Other Provider Fluvirin 6520-7401 Influenza, split virus, completed - Completed reason: Other injectable, 3 years and older Provider Fluvirin [id number] Pneumococcal polysaccharide PPV23 completed - Completed reason: Other Provider Payers Payer name Insurance type Covered alliance party ID Authorization(s) BCBS No Referral Required [id number] Social History Type Description Quantity Date Captured [...] Date Type Action Status Referral Ordered: ordered Bebe Cutler (related to Other cervical disc disorders, unspecified cervical region) Referral Referred To: ordered Bebe Cutler [address] [place], [phone] Ordered: Referrals: Bebe Cutler. Evaluate and treat [...] same medication plan call if symptoms worsen Discussed importance of holding DMARDs/ biologics if [...]
[2017-08-02 15:05] LABS: Hematocrit 42 % (42-52); Hemoglobin 14.5 g/dl (14.0-18.0); Mean Corpuscular HGB Conc 34 g/dl (31-36); Mean Corpuscular Hemoglobin 33 pg (27-31); Mean Corpuscular Volume 96 fL (80-94); Mean Platelet Volume 7 um3 (7.4-10.4); Red Cell Distribution Width 13 % (10.5-15); White Blood Count 6.3 10^3/ul (3.5-10.8)
[2017-08-02 15:17] LABS: Albumin 4.2 g/dL (3.2-5.2); BUN/Creatinine Ratio 15.8 (8-20); Calcium 9.2 mg/dL (8.6-10.3); EGFR African American 96.9 (>60); EGFR Non-African American 75.4 (>60); Globulin 2.1 g/dL (2-4); Potassium 3.9 mmol/L (3.5-5.0); Total Bilirubin 0.4 mg/dL (0.2-1.0); Total Protein 6.3 g/dL (6.4-8.9)
[2017-08-02] MEDS ORDERED: Gadoteridol* (CONTRAST) 279.3 MG/ML 10 ML IV ONE (15:43)
--- NOTE | 2017-08-02 16:14 | RAD ---
INDICATION: Occipital headaches COMPARISON: CT brain same date TECHNIQUE: sagittal T1 FLAIR, axial diffusion, axial T1 FLAIR, axial T2, axial T2 FLAIR, and SWI images were acquired. Additional T1-weighted FLAIR images were obtained in coronal, sagittal, axial planes following administration of 20 mL ProHance FINDINGS: Craniocervical junction: The craniocervical junction appears normal. Ventricles/sulci: The ventricles and cisterns are normal in size and configuration for age. Brain parenchyma: There are no focal parenchymal abnormalities. There is no abnormal enhancement There is no evidence of intracranial mass or mass effect. The diffusion weighted images show no evidence of acute ischemia. Intracranial hemorrhage: There is no intracranial hemorrhage. Extra-axial spaces: There are no extra-axial fluid collections or masses. Orbits: There are no MR abnormalities of the orbital structures. Paranasal sinuses/mastoid: The paranasal sinuses are clear. The mastoid air cells are well aerated.. Vascular: No abnormalities are seen. Other: None IMPRESSION: NEGATIVE EXAMINATION.
--- NOTE | 2017-08-02 19:07 | ED ---
Jhonny Berry Natalie, scribed for Luis Alberto Gibbs MD on 08/02/17 at 1432 . Headache - HPI Summary HPI Summary: The pt is a 61 y/o M presenting to the ED c/o headache onset a month ago. The pain has worsened on and off within the last week s/p getting new glasses prescription on 07/29/17. The pain is aggravated by light and is alleviated by nothing. Pt additionally c/o pain in right eye, photosensitivity, blurred vision , and muffled hearing. Pt denies nothing. He has a history of migraines and was recently diagnosed with cluster headaches. - History Of Current Complaint Chief Complaint: EDHeadache Stated Complaint: STROKE LIKE SYMPTOMS FROM CC Time Seen by Provider: 08/02/17 14:14 Hx Obtained From: Patient Onset/Duration: Started days ago - a month ago, Still Present, Worse Since - s/p getting new glasses prescription Initially Headache Was: Moderate Currently Pain Is: Moderate Timing: Intermittent, Lasting: Aggravating Factor: Bright Lights Allevating Factors: Nothing Associated Signs And Symptoms: Other (Noted In Comments) - pain in right eye, photosensitivity, blurred vision, and muffled hearing - Allergies/Home Medications Allergies/Adverse Reactions: Allergies Allergy/AdvReac Type Severity Reaction Status Date / Time Meloxicam [From Mobic] Allergy Severe Nausea And Verified 07/29/17 14:24 Vomiting Penicillins Allergy Intermediate Hives Verified 07/29/17 14:24 PMH/Surg Hx/FS Hx/Imm Hx Previously Healthy: No Endocrine/Hematology History: Reports: Hx Thyroid Disease - hypothyroid Denies: Hx Diabetes, Hx Systemic Lupus Erythematosus Cardiovascular History: Reports: Hx Hypertension Denies: Hx Congestive Heart Failure, Hx Pacemaker/ICD, Other Cardiovascular Problems/Disorders Respiratory History: Reports: Other Respiratory Problems/Disorders - HX PE IN PAST Denies: Hx Asthma, Hx Chronic Obstructive Pulmonary Disease (COPD) GI History: Denies: Hx Ulcer History: Denies: Hx Dialysis, Hx Renal Disease Musculoskeletal History: Denies: Hx Rheumatoid Arthritis Sensory History: Denies: Hx Hearing Aid Psychiatric History: Denies: Hx Panic Disorder - Cancer History Cancer Type, Location and Year: DENIES Hx Chemotherapy: No - Surgical History Surgery Procedure, Year, and Place: CARPAL TUNNEL RELEASE, HYDROCELE HERNIA CHILD, KNEE ARTHRO,LYPOMA REMOVALS Infectious Disease History: No Infectious Disease History: Denies: Hx Clostridium Difficile, Hx Hepatitis, Hx Human Immunodeficiency Virus (HIV), Hx of Known/Suspected MRSA, Hx Shingles, Hx Tuberculosis, Hx Known/ Suspected VRE, Hx Known/Suspected VRSA, History Other Infectious Disease, Traveled Outside the [place] in Last 30 Days - Family History Known Family History: Positive: Other - Father: Parkinson's disease. Mother: breast CA. - Social History Alcohol Use: Occasionally Substance Use Type: Reports: None Smoking Status (MU): Never Smoked Tobacco Review of Systems Positive: Blurred Vision, Other - photosensitivity, pain in right eye Positive: Other - muffled hearing All Other Systems Reviewed And Are Negative: Yes Physical Exam - Summary Physical Exam Summary: Appearance: The patient is well-nourished in no acute distress and in no acute pain. Skin: The skin is warm and dry and skin color reflects adequate perfusion. HEENT: The head is normocephalic and atraumatic. The pupils are equal and reactive. The conjunctivae are clear and without drainage. Nares are patent and without drainage. Mouth reveals moist mucous membranes and the throat is without erythema and exudate. The external ears are intact. The ear canals are patent and without drainage. The tympanic membranes are intact. Neck: The neck is supple with full range of motion and non-tender. There are no carotid bruits. There is no neck vein distension. Respiratory: Chest is non-tender. Lungs are clear to auscultation and breath sounds are symmetrical and equal. Cardiovascular: Heart is regular rate and rhythm. There is no murmur or rub auscultated. There is no peripheral edema and pulses are symmetrical and equal. Abdomen: The abdomen is soft and non-tender. There are normal bowel sounds heard in all four quadrants and there is no organomegaly palpated. Musculoskeletal: There is no back tenderness noted. Extremities are non-tender with full range of motion. There is good capillary refill. There is no peripheral edema or calf tenderness elicited. Neurological: Patient is alert and oriented to person, place and time. The patient has symmetrical motor strength in all four extremities. Cranial nerves are grossly intact. Deep tendon reflexes are symmetrical and equal in all four extremities. Psychiatric: The patient has an appropriate affect and does not exhibit any anxiety or depression. Triage Information Reviewed: Yes Vital Signs On Initial Exam: Initial Vitals Temp Pulse Resp BP Pulse Ox 98.1 F 71 16 149/93 98 08/02/17 14:15 08/02/17 14:15 08/02/17 14:15 08/02/17 14:15 08/02/17 14:15 Vital Signs Reviewed: Yes Diagnostics - Vital Signs Vital Signs Temp Pulse Resp BP Pulse Ox 08/02/17 14:15 98.1 F 71 16 149/93 98 - Laboratory Lab Results: Lab Results 08/02/17 08/02/17 08/02/17 Range/Units 14:45 14:45 14:45 WBC 6.3 (3.5-10.8) 10^3/ul RBC 4.40 (4.0-5.4) 10^6/ul Hgb 14.5 (14.0-18.0) g/dl Hct 42 (42-52) % MCV 96 H (80-94) fL MCH 33 H (27-31) pg MCHC 34 (31-36) g/dl RDW 13 (10.5-15) % Plt Count 228 (150-450) 10^3/ul MPV 7 L (7.4-10.4) um3 Neut % (Auto) 56.1 (38-83) % Lymph % (Auto) 28.1 (25-47) % [place] % (Auto) 11.8 H (1-9) % Eos % (Auto) 1.2 (0-6) % Baso % (Auto) 2.8 H (0-2) % Absolute Neuts (auto) 3.6 (1.5-7.7) 10^3/ul Absolute Lymphs (auto) 1.8 (1.0-4.8) 10^3/ul Absolute Monos (auto) 0.7 (0-0.8) 10^3/ul Absolute Eos (auto) 0.1 (0-0.6) 10^3/ul Absolute Basos (auto) 0.2 (0-0.2) 10^3/ul Absolute Nucleated RBC 0 10^3/ul Nucleated RBC % 0 INR (Anticoag Therapy) 3.09 H (0.77-1.02) Sodium 139 (133-145) mmol/L Potassium 3.9 (3.5-5.0) mmol/L Chloride 105 (101-111) mmol/L Carbon Dioxide 29 (22-32) mmol/L Anion Gap 5 (2-11) mmol/L BUN 16 (6-24) mg/dL Creatinine 1.01 (0.67-1.17) mg/dL Est GFR ( Amer) 96.9 (>60) Est GFR (Non-Af Amer) 75.4 (>60) BUN/Creatinine Ratio 15.8 (8-20) Glucose 106 H (70-100) mg/dL Calcium 9.2 (8.6-10.3) mg/dL Total Bilirubin 0.40 (0.2-1.0) mg/dL AST 15 (13-39) U/L ALT 16 (7-52) U/L Alkaline Phosphatase 44 (34-104) U/L Total Protein 6.3 L (6.4-8.9) g/dL Albumin 4.2 (3.2-5.2) g/dL Globulin 2.1 (2-4) g/dL Albumin/Globulin Ratio 2.0 (1-3) Result Diagrams: 08/02/17 14:45 08/02/17 14:45 Lab Statement: Any lab studies that have been ordered have been reviewed, and results considered in the medical decision making process. - Radiology Brain MRI Xray Interpretation: No Acute Changes - Negative examination. ED physician has reviewed this report. Radiology Interpretation Completed By: Radiologist Headache Course/Dx - Course Course Of Treatment: Mr. Cuadra F/U'd with Dr. Galicia who gave him an occipital block which took away 50% of his pain. He continued to be symptomatic so today Dr. Galicia ordered an outpatient CT which should small chronic vertex bilateral subdurals and possibly edema and effacement. He was sent for MR which showed unusual findings. It has been reviewed by Drs. Zelaya and Christine of radiology as well as Dr. Esteban and Dr. Aleman who reviewed it with two other neurologists. There is general agreement that the MRI is not normal but there is some confusion over what exactly is going on. Most agree that an LP is probably indicated but there is a concern for increased intracranial pressure. Mr. Cuadra has been accepted by Dr. Araujo and is being transferred to [facility] for further W/U. Even in a darkened room, I have trouble seeing his fundi well and he may need to be dilated. - Diagnoses Provider Diagnoses: Increased intracranial pressure Discharge - Discharge Plan Condition: Stable Disposition: TRANS HIGHER LVL OF CARE FAC Referrals: Zackery Galicia DO [Primary Care Provider] - The documentation as recorded by the Jhonny boggs Natalie accurately reflects the service I personally performed and the decisions made by me, Luis Alberto Gibbs MD.
[2017-08-02 19:49] VITALS: BP 124/72
== END 2017-08-02 20:00 | disposition short-term general hospital (02) ==
LOC: ED 14:13
DX: G93.2 Benign intracranial hypertension (principal); Z88.0 Allergy status to penicillin; E03.9 Hypothyroidism, unspecified; I10 Essential (primary) hypertension
CPT/HCPCS: 36415; 70553; 80053; 85025; 85610; 96374; 99285; A9579

== ENCOUNTER 2018-12-12 17:37 | Emergency (ER) | payer BC ==
[2018-12-12 19:50] LABS: ABS Basophils 0.1 10^3/ul (0-0.2); ABS Eosinophils 0.2 10^3/ul (0-0.6); ABS Lymphocytes 1.9 10^3/ul (1.0-4.8); ABS Monocytes 0.8 10^3/ul (0-0.8); ABS Neutrophils 3.6 10^3/ul (1.5-7.7); Eosinophil % 2.4 %; Hematocrit 44 % (42-52); Hemoglobin 14.8 g/dL (14.0-18.0); Lymphocyte % 29.5 %; Mean Corpuscular HGB Conc 34 g/dL (31-36); Mean Corpuscular Hemoglobin 33 pg (27-31); Mean Corpuscular Volume 99 fL (80-94); Mean Platelet Volume 6.9 fL (7.4-10.4); Platelet Count 231 10^3/uL (150-450); Red Blood Count 4.46 10^6 /uL (4.18-5.48); Red Cell Distribution Width 14 % (10.5-15); White Blood Count 6.6 10^3/uL (3.5-10.8)
[2018-12-12 19:55] LABS: INR 2.7 (0.82-1.09)
[2018-12-12 20:13] LABS: BUN/Creatinine Ratio 14.6 (8-20); C Reactive Protein 2.93 mg/L (<8.01); Calcium 9.5 mg/dL (8.6-10.3); EGFR African American 88.5 (>60); EGFR Non-African American 73.2 (>60); Potassium 4.3 mmol/L (3.5-5.0)
--- NOTE | 2018-12-12 20:19 | ED ---
Upper Extremity Pain - HPI Summary HPI Summary: 63-year-old male presents with left hand pain today. 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 His primary is concerned that he has a DVT. He denies any known injury. No weakness. No numbness or tingling. Pain is over the dorsum of hand. He is right-handed. This has never happened before. denies any chest pain or shortness breath. no fevers or chills. - History of Current Complaint Chief Complaint: EDExtremityUpper Stated Complaint: LT HAND PAIN AND SWOLLEN PER PT Time Seen by Provider: 12/12/18 19:58 - Allergies/Home Medications Allergies/Adverse Reactions: Allergies Allergy/AdvReac Type Severity Reaction Status Date / Time meloxicam Allergy Nausea And Verified 12/12/18 17:50 Vomiting Penicillins Allergy Hives Verified 12/12/18 17:50 PMH/Surg Hx/FS Hx/Imm Hx Endocrine/Hematology History: Reports: Hx Anticoagulant Therapy, Hx Thyroid Disease - hypothyroid Denies: Hx Diabetes, Hx Systemic Lupus Erythematosus Cardiovascular History: Reports: Hx Hypertension Denies: Hx Congestive Heart Failure, Hx Pacemaker/ICD, Other Cardiovascular Problems/Disorders Respiratory History: Reports: Other Respiratory Problems/Disorders - HX PE IN PAST Denies: Hx Asthma, Hx Chronic Obstructive Pulmonary Disease (COPD) GI History: Denies: Hx Ulcer History: Denies: Hx Dialysis, Hx Renal Disease Musculoskeletal History: Denies: Hx Rheumatoid Arthritis Sensory History: Denies: Hx Hearing Aid Psychiatric History: Denies: Hx Panic Disorder - Cancer History Cancer Type, Location and Year: DENIES Hx Chemotherapy: No - Surgical History Surgery Procedure, Year, and Place: CARPAL TUNNEL RELEASE, HYDROCELE HERNIA CHILD, KNEE ARTHRO,LYPOMA REMOVALS - Immunization History Date of Influenza Vaccine: 06/2017 Infectious Disease History: No Infectious Disease History: Denies: Hx Clostridium Difficile, Hx Hepatitis, Hx Human Immunodeficiency Virus (HIV), Hx of Known/Suspected MRSA, Hx Shingles, Hx Tuberculosis, Hx Known/ Suspected VRE, Hx Known/Suspected VRSA, History Other Infectious Disease, Traveled Outside the [place] in Last 30 Days - Family History Known Family History: Positive: Other - Father: Parkinson's disease. Mother: breast CA. - Social History Alcohol Use: Occasionally Substance Use Type: Reports: None Smoking Status (MU): Never Smoked Tobacco Review of Systems Negative: Fever Negative: Chest Pain Negative: Shortness Of Breath Positive: Myalgia - left hand pain All Other Systems Reviewed And Are Negative: Yes Physical Exam Triage Information Reviewed: Yes Vital Signs On Initial Exam: Initial Vitals Temp Pulse Resp BP Pulse Ox 98.3 F 65 16 142/94 98 12/12/18 17:44 12/12/18 17:44 12/12/18 17:44 12/12/18 17:44 12/12/18 17:44 Vital Signs Reviewed: Yes Appearance: Positive: Well-Appearing Skin: Positive: Warm, Dry, Other - no rash or ecchomysis Head/Face: Positive: Normal Head/Face Inspection Eyes: Positive: Normal, Conjunctiva Clear ENT: Positive: Pharynx normal Respiratory/Lung Sounds: Positive: Clear to Auscultation, Breath Sounds Present Cardiovascular: Positive: Normal, RRR Musculoskeletal: Positive: Limited @ - left, Other - good pulses, tenderness dorsum of left hand, capillary refill<2 secs, able to oppose all fingers with pain, tenderness on dorsum of left wrist Neurological: Positive: Normal Psychiatric: Positive: Normal Diagnostics - Vital Signs Vital Signs Temp Pulse Resp BP Pulse Ox 12/12/18 17:44 98.3 F 65 16 142/94 98 - Laboratory Lab Results: Lab Results 12/12/18 12/12/18 12/12/18 Range/Units 19:30 19:30 19:30 WBC 6.6 (3.5-10.8) 10^3/uL RBC 4.46 (4.18-5.48) 10^6 /uL Hgb 14.8 (14.0-18.0) g/dL Hct 44 (42-52) % MCV 99 H (80-94) fL MCH 33 H (27-31) pg MCHC 34 (31-36) g/dL RDW 14 (10.5-15) % Plt Count 231 (150-450) 10^3/uL MPV 6.9 L (7.4-10.4) fL Neut % (Auto) 55.4 % Lymph % (Auto) 29.5 % [place] % (Auto) 11.9 % Eos % (Auto) 2.4 % Baso % (Auto) 0.8 % Absolute Neuts (auto) 3.6 (1.5-7.7) 10^3/ul Absolute Lymphs (auto) 1.9 (1.0-4.8) 10^3/ul Absolute Monos (auto) 0.8 (0-0.8) 10^3/ul Absolute Eos (auto) 0.2 (0-0.6) 10^3/ul Absolute Basos (auto) 0.1 (0-0.2) 10^3/ul Absolute Nucleated RBC 0.0 10^3/ul Nucleated RBC % 0.0 INR (Anticoag Therapy) 2.70 H (0.82-1.09) Sodium 143 (135-145) mmol/L Potassium 4.3 (3.5-5.0) mmol/L Chloride 107 (101-111) mmol/L Carbon Dioxide 32 (22-32) mmol/L Anion Gap 4 (2-11) mmol/L BUN 15 (6-24) mg/dL Creatinine 1.03 (0.67-1.17) mg/dL Est GFR ( Amer) 88.5 (>60) Est GFR (Non-Af Amer) 73.2 (>60) BUN/Creatinine Ratio 14.6 (8-20) Glucose 103 H (70-100) mg/dL Calcium 9.5 (8.6-10.3) mg/dL C-Reactive Protein 2.93 (<8.01) mg/L Result Diagrams: 12/12/18 19:30 12/12/18 19:30 Lab Statement: Any lab studies that have been ordered have been reviewed, and results considered in the medical decision making process. - Ultrasound No standard instances Ultrasound Interpretation Completed By: Radiologist Summary of Ultrasound Findings: IMPRESSION: No evidence of DVT. Focal superficial thrombus noted in the arm. Course/Dx - Course Course Of Treatment: 63-year-old male presents with left hand pain today. 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 His primary is concerned that he has a DVT. He denies any known injury. No weakness. No numbness or tingling. Pain is over the dorsum of hand. He is right-handed. This has never happened before. denies any chest pain or shortness breath. no fevers or chills. On exam mild edema noted. No ecchymosis or rash. No point tenderness. tenderness over dorsum of left hand and wrist. ultrasound shows superficial thrombus. discussed that inr is therapeutic and appears to have superficial thrombosis causing symptoms so told to place heat and continue coumdain and can follow up with primary. patient understand and agrees with plan. - Diagnoses Differential Diagnosis/HQI/PQRI: Positive: Contusion, Hematoma, Other - dvt, superficial phlebitis Provider Diagnoses: Left hand pain Discharge - Sign-Out/Discharge Documenting (check all that apply): Patient Departure Patient Received Moderate/Deep Sedation with Procedure: No - Discharge Plan Condition: Good Disposition: HOME Patient Education Materials: Superficial Thrombophlebitis (ED) Referrals: Zackery Galicia DO [Primary Care Provider] - Additional Instructions: place heat on the area Follow up with primary Return to ED if develop any new or worsening symptoms - Billing Disposition and Condition Condition: GOOD Disposition: Home
[2018-12-12 20:38] VITALS: BP 135/102
== END 2018-12-12 20:37 | disposition home or self-care (01) ==
LOC: ED 17:37
DX: M79.642 Pain in left hand (principal); I82.612 Acute embolism and thrombosis of superficial veins of left upper extremity; I10 Essential (primary) hypertension; E03.9 Hypothyroidism, unspecified; Z88.0 Allergy status to penicillin; Z88.8 Allergy status to other drugs, medicaments and biological substances; Z79.01 Long term (current) use of anticoagulants; Z86.711 Personal history of pulmonary embolism
CPT/HCPCS: 36415; 80048; 85025; 85610; 86140; 99282